=== PATIENT | male | born 1990 | race Caucasian/White ===

== ENCOUNTER → 2018-01-30 06:33 | Outpatient (CLI) | payer OTHER, SELFPAY ==
--- NOTE | 2018-01-30 | DI.MRI.S_ITS ---
PROCEDURE: MR LUMBAR SPINE WO CON INDICATIONS: LOW BACK PAIN Sacrococcygeal disorders, not elsewh TECHNIQUE: Noncontrast sagittal T1 spin echo and T2 fast echo, sagittal STIR, axial T1 and T2 fast spin echo through the lumbar spine. In cases with scoliosis, additional coronal T2 fast spin echo may be performed. COMPARISON: [facility], , MR PELVIS WO CON, 01/30/2018, 7:21. [facility], CR, XR LUMBAR SPINE WITH OLBIQUES PLUS FLEXION EXTENSION, 01/06/2018, 13:40. [facility] Outside Film, CR, XR LUMBAR SPINE 2 OR 3 VIEWS, 11/10/2017, 11:59. [facility] Outside Film, CR, XR SACRUM AND COCCYX, 07/09/2017, 12:51. FINDINGS: Image quality: Excellent. Alignment and Curvature: There is normal bony alignment. Bone Marrow: Marrow is of normal overall signal. No acute vertebral body compression fractures. Spinal Cord: Conus medullaris terminates at the L1 level. Visualized cord demonstrates normal signal and size. Paraspinous Soft Tissues: No paravertebral masses. L1-L2: Normal appearance. L2-L3: Normal appearance. L3-L4: Normal appearance. L4-L5: Normal appearance. L5-S1: Normal appearance. IMPRESSION: Normal examination, source of current symptoms is not seen. Dictated by: William Norwood M.D. on 01/30/2018 at 10:56 Approved by: William Norwood M.D. on 01/30/2018 at 10:57
--- NOTE | 2018-01-30 | DI.MRI.S_ITS ---
PROCEDURE: MR PELVIS WO CON INDICATIONS: LOW BACK PAIN Sacrococcygeal disorders, not elsewh TECHNIQUE: Noncontrast axial and coronal T1 spin echo and STIR through the lumbosacral plexus region. Optional contrast may be given, followed by axial and coronal T1 spin echo with fat saturation through the sacral plexus. COMPARISON: None. FINDINGS: Image quality: Excellent. Lumbosacral plexus: Superior to the piriformis muscles, the pre-plexal structures appear normal, including the lumbosacral trunk and S1 root. Just anterior to the piriformis muscles, the sacral plexus proper demonstrates normal morphology (lumbosacral trunk, S1 to S3 nerve roots). Inferior to the piriformis muscles, the sciatic nerves appear normal. Soft tissues: The piriformis muscles appear symmetric in size. No presacral masses. Rectum appears normal in caliber and wall thickness. No pathologic free pelvic fluid. No visualized adenopathy by size criteria. Bones: Marrow is normal in overall signal. IMPRESSION: Normal examination, no mass or inflammation is seen. The visualized sacral nerves and presacral soft tissues appear normal. Dictated by: William Norwood M.D. on 01/30/2018 at 10:02 Approved by: William Norwood M.D. on 01/30/2018 at 10:03
== END ==
PROVIDERS: Visit Provider Physical Medicine & Rehabilitation
DX: M53.3 Sacrococcygeal disorders, not elsewhere classified (principal); M54.5 Low back pain
CPT/HCPCS: 72148; 72195

== ENCOUNTER → 2018-11-05 11:43 | Outpatient (CLI) | payer OTHER, SELFPAY ==
--- NOTE | 2018-11-05 | DI.MRI.S_ITS ---
PROCEDURE: MR ANKLE LT WO CON INDICATIONS: Peroneal tendinitis, left leg TECHNIQUE: Noncontrast sagittal T1 spin echo and T2 fast spin echo with fat saturation, axial proton density fast spin echo and T2 fast spin echo with fat saturation, coronal T1 spin echo and T2 fast spin echo with fat saturation through the ankle/hindfoot. COMPARISON: None. FINDINGS: Image quality: Diagnostic. Bones and joints: No acute fracture, dislocation, or suspicious osseous lesion is evident involving the osseous structures of the left midfoot or hindfoot. A chronic appearing injury involving the anterior process of the calcaneus appears to be present. Mild degenerative changes involving the talonavicular and calcaneocuboid joints are present. Ankle mortise is well-maintained. There are no osteochondral defects involving the tibial plafond toward the talar dome. Medial structures: The deltoid and spring ligaments appear intact. The tibialis posterior, flexor digitorum longus, and flexor hallucis longus tendons are intact and otherwise unremarkable. The posterior tibial nerve through the region of the tarsal tunnel appears to be within normal limits. Lateral structures: The anterior and posterior distal tibiofibular ligaments are somewhat heterogeneous, but appear to be intact. There is thickening involving the anterior talofibular ligament, which may represent scarring from previous partial thickness injury. The calcaneofibular ligament and the posterior talofibular ligament appear intact. There is flattening of the peroneus brevis tendon on the posterior margin of the lateral malleolus. No significant narrowing is appreciated. There is thickening and increased signal evident involving the peroneus longus tendon just below the the level of the lateral malleolus. There likely is intrasubstance low-grade partial-thickness tearing. Normal fatty signal is seen within the sinus tarsi. Anterior structures: The tibialis anterior, extensor hallucis longus, and extensor digitorum longus tendons appear intact. Posterior and plantar structures: Achilles tendon is mildly thickened and edematous at its insertion. The plantar fascia is within normal limits. IMPRESSION: 1. Low-grade intrasubstance partial thickness tearing and prominent tendinopathy of the peroneus longus tendon. 2. 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 3. Probable scarring of the lateral ankle ligaments. No complete tears. 4. Chronic appearing injury of the anterior process of the calcaneus. 5. Mild degenerative changes at the talonavicular and calcaneocuboid joints. 6. Mild Achilles tendinopathy. Dictated by: Moris Red M.D. on 11/05/2018 at 14:18 Approved by: Moris Red M.D. on 11/05/2018 at 15:09
== END ==
DX: M76.72 Peroneal tendinitis, left leg (principal); S86.312A Strain of muscle(s) and tendon(s) of peroneal muscle group at lower leg level, left leg, initial encounter
CPT/HCPCS: 73721

== ENCOUNTER 2019-01-07 09:45 | Outpatient (RCR) | payer OTHER, SELFPAY ==
--- NOTE | 2018-10-21 15:20 | PT.OIE ---
Current Diagnoses Pain in right shoulder (10/21/18) Pain in left ankle and joints of left foot (10/21/18) Difficulty in walking, not elsewhere classified (10/21/18) Abnormal posture (10/21/18) Weakness (10/21/18) Provider Visit Care Team Role Provider Type William John MD Attending Provider Non-Staff Specialty: Emergency Medicine Address: [address] [place] [address], [place], [address] Email: Physical Therapy Initial Evaluation PT-OP-A Visit Information Start: 10/20/18 17:37 Freq: Status: Active Protocol: Document 10/21/18 10:33 [facility] (Rec: 10/21/18 12:10 [facility] [id number]) Out-Patient Physical Therapy Visit Information Visit Information Visit Type Initial Evaluation Visit Start Time 10:32 Visit Stop Time 11:22 Total Visit Minutes 50 Visit Number 06/18 Number of PHARMACY LABORATORY TECHNICIAN Visits 0 PT-OP-B Current Condition Start: 10/20/18 17:37 Freq: Status: Active Protocol: Document 10/21/18 10:33 [facility] (Rec: 10/21/18 12:10 [facility] [id number]) Current Condition History of Current Condition Onset Date Jun Current Complaints R shoulder & L ankle History of Current Condition Pt was pushing up a garage door and it got stuck and all the weight pushed into his R shoulder. this occured the end of Jun He thought it was just a bruise and they got a new bed and that exhasterbated it significantly. Pt reports ER said they think it was a grade 2 or 3 AC seperation. Pt had part of a week off work but has to go back. 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 He reprots it felt better the few days of rest but has to go back. Pt denies shoulder & neck pain prior. After working a lot, he had shoulder drop where he couldn 't lift his shoulder. This started on October 09. Pt had 9 days off which helped and prior to that was working and it would aggrevate it a lot. Pt reports with ankle he has 2 ankle spains that were significant. Pt had a 500lb despencer pod dropped on it. He fell backwards and it came down on his left ankle and fell back onto his tailbone and broke his tailbone. 2nd time when he was moving into house and stepped into a ditch and rolled ankle and was very swollen. 3rd injury he tripped on a baseball bat and had bruising onto the top of foot & ankle. Pt did not see doctor except for 1st injury and just put a boot on. 1st one happened in 2013, 2015 , 2016 Prior Treatments and Tests Xray of shoulder; just got a topical gel for ankle Future Testing and Treatments Planned MRI of ankle Treatment Goals Patient/Caregiver Goals get to 100%; start playing hockey on roller blades with kids again, work a full day without pain, be able to walk dogs without pain PT-OP-C Subjective Start: 10/20/18 17:37 Freq: Status: Active Protocol: Document 10/21/18 10:33 [facility] (Rec: 10/21/18 12:10 [facility] [id number]) OP-PT Pain Assessment Location L ankle Pain Location Details lat& post & forefoot dorsal surfaces Intensity 6 Scale Used Numeric (1 - 10) Description Aching Sharp Description- Other popping in L knee & ankle & L knee is going to move lat; fresh mm tear Frequency Daily Pain Duration about 1 min for tingling; up to 1 hour Radiating Location Lat foot tingling/pins and needles when sit after standing ext Pain Aggravating Factors Standing Walking Other Pain Aggravating Factors step onto it with push off Pain Alleviating Factors Medication R shoulder Pain Location Details Ant & sup Intensity 7 Scale Used Numeric (1 - 10) Description Acute Sharp Frequency Daily Pain Duration typically 5-15 min but sometimes aggrevated a day Radiating Location tingling & numbness in arm med into pinky region (unsure if others) Pain Aggravating Factors Lifting Other Pain Aggravating Factors sleeping on it, reaching, pulling, reaching across Pain Alleviating Factors Cold Heat Medication Inactivity PT-OP-D Balance Start: 10/20/18 17:37 Freq: Status: Active Protocol: Document 10/21/18 10:33 [facility] (Rec: 10/21/18 12:10 [facility] [id number]) Balance Tests Single Limb Standing Single Limb- Right >30sec Single Limb- Left 17 sec w/deviation & popping Tandem Tandem Standing R >30 sec; L>30 sec with 2 deviations PT-OP-G Mobility & Gait Start: 10/20/18 17:37 Freq: Status: Active Protocol: Document 10/21/18 10:33 [facility] (Rec: 10/21/18 12:10 [facility] [id number]) OP Gait Assessment Comments Gait Comments Pt has dec push off B with inc ER of pelvis with push off PT-OP-K Range of Motion Start: 10/20/18 17:37 Freq: Status: Active Protocol: Document 10/21/18 10:33 [facility] (Rec: 10/21/18 12:10 [facility] [id number]) Shoulder Goniometric Range of Motion Shoulder Measured in Degrees Right Active Flexion 130 Extension 51 Abduction 128 External Rotation at 45 degrees 90 Abduction Internal Rotation 85 Internal Rotation Behind Back (text) T12 Left Active Flexion 174 Extension 60 Abduction 167 External Rotation at 90 degrees 90 Abduction Internal Rotation 70 Internal Rotation Behind Back (text) T4 Ankle and Foot Goniometric Range of Motion Ankle and Foot Measured in Degrees Left Active Testing Position Sitting Dorsiflexion with Knee Flexed 10 Dorsiflexion with Knee Extended 10 Plantarflexion 39 Inversion 22 Eversion 20 Ankle and Foot ROM Limitations Comments lacking 10 dec of DF w/knee ext PT-OP-L Special Tests Start: 10/20/18 17:37 Freq: Status: Active Protocol: Document 10/21/18 10:33 [facility] (Rec: 10/21/18 12:10 [facility] [id number]) Special Tests Shoulder Special Tests Neer Impingement Test Results positive R Sulcus Test Results neg [place]ford Ilia Impingement Test Results positive R Empty Can Test Results positive R Speed's Biceps Test Results positive for pain R Webb Test Test Results positive for pain R AC Joint Compression Test Results positive for pain R Foot/Ankle Special Tests Talor Tilt Test Results R positive Anterior Draw Test Results neg L Neural Special Tests- Upper Body Median Nerve Tension Test Results positive R Upper Limb Tension Test Test Results passive abd L ~120 ; R passive about 90 Radial Nerve Tension Test Results positive R Ulnar Nerve Tension Test Results positive R PT-OP-M Strength Start: 10/20/18 17:37 Freq: Status: Active Protocol: Document 10/21/18 10:33 [facility] (Rec: 10/21/18 12:10 [facility] [id number]) Shoulder Strength Shoulder Manual Muscle Testing Right Flexion 4- Good- Extension 4- Good- Abduction (C5) 4- Good- External Rotation 4- Good- Internal Rotation 4- Good- Reason Not Measured Pain Left Flexion 5 Normal Extension 5 Normal Adduction 5 Normal External Rotation 4+ Good+ Internal Rotation 5 Normal Ankle/Foot Strength Ankle and Foot Manual Muscle Testing Right Dorsiflexion (L4) 5 Normal Plantarflexion (S1) 5 Normal Inversion 5 Normal Eversion (S1) 5 Normal Left Dorsiflexion (L4) 4 Good Plantarflexion (S1) 5 Normal Inversion 4 Good Eversion (S1) 4 Good PT-OP-Q Treatments Start: 10/20/18 17:37 Freq: Status: Active Protocol: Document 10/21/18 10:33 [facility] (Rec: 10/21/18 12:10 [facility] [id number]) Therapeutic Exercises Sitting Exercises ROM Sitting Exercise Name ABCs & circles Side left Standing Exercises calf stretch Standing Exercise Name gastroc Side left Reps/Minutes 30 sec PT-OP-T Assessment and Plan Start: 10/20/18 17:37 Freq: Status: Active Protocol: Document 10/21/18 10:33 [facility] (Rec: 10/21/18 12:10 [facility] [id number]) Physical Therapy Assessment Rehab Potential Rehabilitation Potential Excellent Evaluation Complexity Number of Personal Factors/Comorbidities 3 or More Number of Body Systems Impaired 4 or More Clinical Presentation at Evaluation Evolving Impairments Impairments Activity Tolerance Balance Functional Activities Functional Mobility Gait Pain Posture ROM Soft Tissue Mobility Strength Goals strength Short Term Goal (STG) Pt will be indep with HEP STG Duration 11/21/18 Corporate Librarian Goal (LTG) Pt will have 5/5 LE and UE strength to allow full return to sport & work without pain. LTG Duration 12/21/18 ROM Short Term Goal (STG) Full ROM to ankle to allow improved gait. STG Duration 11/21/18 Corporate Librarian Goal (LTG) Pt will have full shoulder ROM to allow for typical ADLs without pain. LTG Duration 12/21/18 function Short Term Goal (STG) Pt will be able to tolerate half day of work with no more than 4/10 pain in ankle and shoulder. STG Duration 11/21/18 Custodial Goal (LTG) Pt will be able to tolerate full day work without pain and will be able to play with kids without inc pain. LTG Duration 12/21/18 Assessment Summary Assessment Pt presents with s/s of subacromial impingment & rotator cuff tendinitis with possiblity of AC separation at initial injury per MD. Pt presents with chronic ankle sprains with dec ankle mobility, impaired gait, dec strrength and dec functional ability. Pt would benefit from skilled PT to address both issues and work on improvement of his mobility and symptoms. Physical Therapy Plan Frequency and Duration Duration of Treatment 2 months Plan of Care Start Date 10/21/18 Plan of Care End Date 12/21/18 Therapeutic Interventions Therapeutic Interventions Aquatic Therapy Balance Training Gait Training Home Exercise Program Joint Mobilizations Manual Therapy Neuromuscular Re-education Patient/Caregiver Education Self-Care/Home Management Soft Tissue Mobilization Taping Therapeutic Activities Therapeutic Exercises Modalities Cold Pack/Ice Massage Electric Stimulation Hot Packs Infrared Therapy Iontophoresis Ultrasound Next Visit Focus/Plan Next Note Type Treatment Note Next Visit Plan scapular strengthening exercises, UT & LS stretch, pec stretch, ankle 4 way strength, STM to ankle structures & pecs
--- NOTE | 2018-10-21 15:20 | PT.OPPOC ---
Current Diagnoses Pain in right shoulder (10/21/18) Pain in left ankle and joints of left foot (10/21/18) Difficulty in walking, not elsewhere classified (10/21/18) Abnormal posture (10/21/18) Weakness (10/21/18) Provider Visit Care Team Role Provider Type William John MD Attending Provider Non-Staff Specialty: Emergency Medicine Address: [address] [place] [address], [id number] Email: Plan Of Care PT-OP-T Assessment and Plan Start: 10/20/18 17:37 Freq: Status: Active Protocol: Document 10/21/18 10:33 [facility] (Rec: 10/21/18 12:10 [facility] [id number]) Physical Therapy Assessment Rehab Potential Rehabilitation Potential Excellent Evaluation Complexity Number of Personal Factors/Comorbidities 3 or More Number of Body Systems Impaired 4 or More Clinical Presentation at Evaluation Evolving Impairments Impairments Activity Tolerance Balance Functional Activities Functional Mobility Gait Pain Posture ROM Soft Tissue Mobility Strength Goals strength Short Term Goal (STG) Pt will be indep with HEP STG Duration 11/21/18 Dividing Machine Operator Goal (LTG) Pt will have 5/5 LE and UE strength to allow full return to sport & work without pain. LTG Duration 12/21/18 ROM Short Term Goal (STG) Full ROM to ankle to allow improved gait. STG Duration 11/21/18 Dividing Machine Operator Goal (LTG) Pt will have full shoulder ROM to allow for typical ADLs without pain. LTG Duration 12/21/18 function Short Term Goal (STG) Pt will be able to tolerate half day of work with no more than 4/10 pain in ankle and shoulder. STG Duration 11/21/18 Dividing Machine Operator Goal (LTG) Pt will be able to tolerate full day work without pain and will be able to play with kids without inc pain. LTG Duration 12/21/18 Assessment Summary Assessment Pt presents with s/s of subacromial impingment & rotator cuff tendinitis with possiblity of AC separation at initial injury per MD. Pt presents with chronic ankle sprains with dec ankle mobility, impaired gait, dec strrength and dec functional ability. Pt would benefit from skilled PT to address both issues and work on improvement of his mobility and symptoms. Physical Therapy Plan Frequency and Duration Duration of Treatment 2 months Plan of Care Start Date 10/21/18 Plan of Care End Date 12/21/18 Therapeutic Interventions Therapeutic Interventions Aquatic Therapy Balance Training Gait Training Home Exercise Program Joint Mobilizations Manual Therapy Neuromuscular Re-education Patient/Caregiver Education Self-Care/Home Management Soft Tissue Mobilization Taping Therapeutic Activities Therapeutic Exercises Modalities Cold Pack/Ice Massage Electric Stimulation Hot Packs Infrared Therapy Iontophoresis Ultrasound Next Visit Focus/Plan Next Note Type Treatment Note Next Visit Plan scapular strengthening exercises, UT & LS stretch, pec stretch, ankle 4 way strength, STM to ankle structures & pecs Plan of Care Dates Plan of Care Start Date 10/21/18 Plan of Care End Date 12/21/18 Please Sign and Return: I have reviewed this Plan of Care and certify that the skilled therapy services above are required to meet the patient?s needs. Physician Signature Date Printed Name and Credentials Clinical Instructor Signature Printed Name and Credentials
--- NOTE | 2018-10-29 11:16 | PT.OTN ---
Current Diagnoses Pain in right shoulder (10/29/18) Pain in left ankle and joints of left foot (10/29/18) Difficulty in walking, not elsewhere classified (10/29/18) Abnormal posture (10/29/18) Weakness (10/29/18) Physical Therapy Treatment Note PT-OP-A Visit Information Start: 10/20/18 17:37 Freq: Status: Active Protocol: Document 10/29/18 10:35 DCW (Rec: 10/29/18 11:15 [facility] [id number]) Out-Patient Physical Therapy Visit Information Visit Information Visit Type Treatment Note Visit Start Time 10:35 Visit Stop Time 11:15 Total Visit Minutes 40 Visit Number 07/19 Number of STUD SETTER Visits 0 Evaluation Information Evaluation Date 10/22/15 PT-OP-B Current Condition Start: 10/20/18 17:37 Freq: Status: Active Protocol: Document 10/21/18 10:33 [facility] (Rec: 10/21/18 12:10 [facility] [id number]) Current Condition History of Current Condition Onset Date Jun Current Complaints R shoulder & L ankle History of Current Condition Pt was pushing up a garage door and it got stuck and all the weight pushed into his R shoulder. this occured the end of Jun He thought it was just a bruise and they got a new bed and that exhasterbated it significantly. Pt reports ER said they think it was a grade 2 or 3 AC seperation. Pt had part of a week off work but has to go back. 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 He reprots it felt better the few days of rest but has to go back. Pt denies shoulder & neck pain prior. After working a lot, he had shoulder drop where he couldn 't lift his shoulder. This started on October 09. Pt had 9 days off which helped and prior to that was working and it would aggrevate it a lot. Pt reports with ankle he has 2 ankle spains that were significant. Pt had a 500lb despencer pod dropped on it. He fell backwards and it came down on his left ankle and fell back onto his tailbone and broke his tailbone. 2nd time when he was moving into house and stepped into a ditch and rolled ankle and was very swollen. 3rd injury he tripped on a baseball bat and had bruising onto the top of foot & ankle. Pt did not see doctor except for 1st injury and just put a boot on. 1st one happened in 2013, 2015 , 2016 Prior Treatments and Tests Xray of shoulder; just got a topical gel for ankle Future Testing and Treatments Planned MRI of ankle Treatment Goals Patient/Caregiver Goals get to 100%; start playing hockey on roller blades with kids again, work a full day without pain, be able to walk dogs without pain PT-OP-C Subjective Start: 10/20/18 17:37 Freq: Status: Active Protocol: Document 10/29/18 10:35 [facility]W (Rec: 10/29/18 11:16 [facility] [id number]) OP-PT Subjective Patient Comments Patient Comments I think my ankle is going to be giving us more trouble than my shoulder. PT-OP-D Balance Start: 10/20/18 17:37 Freq: Status: Active Protocol: Document 10/21/18 10:33 [facility] (Rec: 10/21/18 12:10 [facility] [id number]) Balance Tests Single Limb Standing Single Limb- Right >30sec Single Limb- Left 17 sec w/deviation & popping Tandem Tandem Standing R >30 sec; L>30 sec with 2 deviations PT-OP-G Mobility & Gait Start: 10/20/18 17:37 Freq: Status: Active Protocol: Document 10/21/18 10:33 [facility] (Rec: 10/21/18 12:10 [facility] [id number]) OP Gait Assessment Comments Gait Comments Pt has dec push off B with inc ER of pelvis with push off PT-OP-K Range of Motion Start: 10/20/18 17:37 Freq: Status: Active Protocol: Document 10/21/18 10:33 [facility] (Rec: 10/21/18 12:10 [facility] [id number]) Shoulder Goniometric Range of Motion Shoulder Measured in Degrees Right Active Flexion 130 Extension 51 Abduction 128 External Rotation at 45 degrees 90 Abduction Internal Rotation 85 Internal Rotation Behind Back (text) T12 Left Active Flexion 174 Extension 60 Abduction 167 External Rotation at 90 degrees 90 Abduction Internal Rotation 70 Internal Rotation Behind Back (text) T4 Ankle and Foot Goniometric Range of Motion Ankle and Foot Measured in Degrees Left Active Testing Position Sitting Dorsiflexion with Knee Flexed 10 Dorsiflexion with Knee Extended 10 Plantarflexion 39 Inversion 22 Eversion 20 Ankle and Foot ROM Limitations Comments lacking 10 dec of DF w/knee ext PT-OP-L Special Tests Start: 10/20/18 17:37 Freq: Status: Active Protocol: Document 10/21/18 10:33 [facility] (Rec: 10/21/18 12:10 [facility] [id number]) Special Tests Shoulder Special Tests Neer Impingement Test Results positive R Sulcus Test Results neg [place] Ilia Impingement Test Results positive R Empty Can Test Results positive R Speed's Biceps Test Results positive for pain R Gratiot Test Test Results positive for pain R AC Joint Compression Test Results positive for pain R Foot/Ankle Special Tests Talor Tilt Test Results R positive Anterior Draw Test Results neg L Neural Special Tests- Upper Body Median Nerve Tension Test Results positive R Upper Limb Tension Test Test Results passive abd L ~120 ; R passive about 90 Radial Nerve Tension Test Results positive R Ulnar Nerve Tension Test Results positive R PT-OP-M Strength Start: 10/20/18 17:37 Freq: Status: Active Protocol: Document 10/21/18 10:33 [facility] (Rec: 10/21/18 12:10 [facility] [id number]) Shoulder Strength Shoulder Manual Muscle Testing Right Flexion 4- Good- Extension 4- Good- Abduction (C5) 4- Good- External Rotation 4- Good- Internal Rotation 4- Good- Reason Not Measured Pain Left Flexion 5 Normal Extension 5 Normal Adduction 5 Normal External Rotation 4+ Good+ Internal Rotation 5 Normal Ankle/Foot Strength Ankle and Foot Manual Muscle Testing Right Dorsiflexion (L4) 5 Normal Plantarflexion (S1) 5 Normal Inversion 5 Normal Eversion (S1) 5 Normal Left Dorsiflexion (L4) 4 Good Plantarflexion (S1) 5 Normal Inversion 4 Good Eversion (S1) 4 Good PT-OP-Q Treatments Start: 10/20/18 17:37 Freq: Status: Active Protocol: Document 10/29/18 10:35 [facility] (Rec: 10/29/18 11:15 [facility] [id number]) Therapeutic Exercises Sitting Exercises 4-way ankle flexion Sitting Exercise Name 4-way ankle flexion Upper Trap Stretch Sitting Exercise Name UT Stretch Side bilateral Standing Exercises Pec Stretch Standing Exercise Name Corner Pec Stretch Side bilateral External Rotation Standing Exercise Name Shoulder ER Side right Resistance Lv 2 Equipment Used T-band Internal Rotation Standing Exercise Name Shoulder IR Side right Resistance Lv 2 Equipment Used T-band Shoulder Adduction Standing Exercise Name Shoulder Adduction Side bilateral Resistance Lv 3 Equipment Used T-band Shoulder Extension Standing Exercise Name Shoulder Extension Side bilateral Resistance Lv 3 Equipment Used T-band PT-OP-T Assessment and Plan Start: 10/20/18 17:37 Freq: Status: Active Protocol: Document 10/29/18 10:35 [facility] (Rec: 10/29/18 11:15 [facility] [id number]) Physical Therapy Assessment Impairments Impairments Activity Tolerance Balance Functional Activities Functional Mobility Gait Pain Posture ROM Soft Tissue Mobility Strength Goals strength Short Term Goal (STG) Pt will be indep with HEP STG Duration 11/21/18 Life Support Technician Goal (LTG) Pt will have 5/5 LE and UE strength to allow full return to sport & work without pain. LTG Duration 12/21/18 ROM Short Term Goal (STG) Full ROM to ankle to allow improved gait. STG Duration 11/21/18 Life Support Technician Goal (LTG) Pt will have full shoulder ROM to allow for typical ADLs without pain. LTG Duration 12/21/18 function Short Term Goal (STG) Pt will be able to tolerate half day of work with no more than 4/10 pain in ankle and shoulder. STG Duration 11/21/18 [facility] Goal (LTG) Pt will be able to tolerate full day work without pain and will be able to play with kids without inc pain. LTG Duration 12/21/18 Assessment Summary Assessment Pt tolerated all new exercises well, agreeable to perform new stretches during HEP. Pt's left peroneal tendon does appear to sublux and strum across his lat malleolus, however this will be better observed in his upcoming MRI. Physical Therapy Plan Frequency and Duration Duration of Treatment 2 months Plan of Care Start Date 10/21/18 Plan of Care End Date 12/21/18 Therapeutic Interventions Therapeutic Interventions Aquatic Therapy Balance Training Gait Training Home Exercise Program Joint Mobilizations Manual Therapy Neuromuscular Re-education Patient/Caregiver Education Self-Care/Home Management Soft Tissue Mobilization Taping Therapeutic Activities Therapeutic Exercises Modalities Cold Pack/Ice Massage Electric Stimulation Hot Packs Infrared Therapy Iontophoresis Ultrasound Next Visit Focus/Plan Next Note Type Treatment Note Next Visit Plan scapular strengthening exercises, UT & LS stretch, pec stretch, ankle 4 way strength, STM to ankle structures & pecs
--- NOTE | 2018-11-05 09:57 | PT.OTN ---
Current Diagnoses Pain in right shoulder (11/05/18) Pain in left ankle and joints of left foot (11/05/18) Difficulty in walking, not elsewhere classified (11/05/18) Abnormal posture (11/05/18) Weakness (11/05/18) Physical Therapy Treatment Note PT-OP-A Visit Information Start: 10/20/18 17:37 Freq: Status: Active Protocol: Document 11/05/18 09:57 DL (Rec: 11/05/18 17:14 DL [id number]) Out-Patient Physical Therapy Visit Information Visit Information Visit Type Treatment Note Visit Start Time 09:57 Visit Stop Time 10:36 Total Visit Minutes 39 Visit Number 08/16 Number of VEGETABLE FARMWORKER Visits 0 Evaluation Information Evaluation Date 10/22/15 PT-OP-B Current Condition Start: 10/20/18 17:37 Freq: Status: Active Protocol: Document 10/21/18 10:33 [facility] (Rec: 10/21/18 12:10 [facility] [id number]) Current Condition History of Current Condition Onset Date Jun Current Complaints R shoulder & L ankle History of Current Condition Pt was pushing up a garage door and it got stuck and all the weight pushed into his R shoulder. this occurred the end of Jun He thought it was just a bruise and they got a new bed and that exacerbated it significantly. Pt reports ER said they think it was a grade 2 or 3 AC separation. Pt had part of a week off work but has to go back. 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 He reports it felt better the few days of rest but has to go back. Pt denies shoulder & neck pain prior. After working a lot, he had shoulder drop where he couldn 't lift his shoulder. This started on October 09. Pt had 9 days off which helped and prior to that was working and it would aggravate it a lot. Pt reports with ankle he has 2 ankle sprains that were significant. Pt had a 500lb dispenser pod dropped on it. He fell backwards and it came down on his left ankle and fell back onto his tailbone and broke his tailbone. 2nd time when he was moving into house and stepped into a ditch and rolled ankle and was very swollen. 3rd injury he tripped on a baseball bat and had bruising onto the top of foot & ankle. Pt did not see doctor except for 1st injury and just put a boot on. 1st one happened in 2013, 2015 , 2016 Prior Treatments and Tests Xray of shoulder; just got a topical gel for ankle Future Testing and Treatments Planned MRI of ankle Treatment Goals Patient/Caregiver Goals get to 100%; start playing hockey on roller blades with kids again, work a full day without pain, be able to walk dogs without pain PT-OP-C Subjective Start: 10/20/18 17:37 Freq: Status: Active Protocol: Document 11/05/18 09:57 [facility] (Rec: 11/05/18 17:14 [facility] [id number]) OP-PT Subjective Patient Comments Patient Comments Shoulder is better. He only notices pain if he tries to throw or reach over head. His ankle pops all the time. He is getting an MRI today on his ankle. OP-PT Pain Assessment Location L ankle Intensity 4 Scale Used Numeric (1 - 10) Description Aching Sharp Description- Other popping left lateral ankle and up to knee PT-OP-D Balance Start: 10/20/18 17:37 Freq: Status: Active Protocol: Document 10/21/18 10:33 [facility] (Rec: 10/21/18 12:10 [facility] [id number]) Balance Tests Single Limb Standing Single Limb- Right >30sec Single Limb- Left 17 sec w/deviation & popping Tandem Tandem Standing R >30 sec; L>30 sec with 2 deviations PT-OP-G Mobility & Gait Start: 10/20/18 17:37 Freq: Status: Active Protocol: Document 10/21/18 10:33 [facility] (Rec: 10/21/18 12:10 [facility] [id number]) OP Gait Assessment Comments Gait Comments Pt has dec push off B with inc ER of pelvis with push off PT-OP-K Range of Motion Start: 10/20/18 17:37 Freq: Status: Active Protocol: Document 10/21/18 10:33 [facility] (Rec: 10/21/18 12:10 [facility] [id number]) Shoulder Goniometric Range of Motion Shoulder Measured in Degrees Right Active Flexion 130 Extension 51 Abduction 128 External Rotation at 45 degrees 90 Abduction Internal Rotation 85 Internal Rotation Behind Back (text) T12 Left Active Flexion 174 Extension 60 Abduction 167 External Rotation at 90 degrees 90 Abduction Internal Rotation 70 Internal Rotation Behind Back (text) T4 Ankle and Foot Goniometric Range of Motion Ankle and Foot Measured in Degrees Left Active Testing Position Sitting Dorsiflexion with Knee Flexed 10 Dorsiflexion with Knee Extended 10 Plantarflexion 39 Inversion 22 Eversion 20 Ankle and Foot ROM Limitations Comments lacking 10 dec of DF w/knee ext PT-OP-L Special Tests Start: 10/20/18 17:37 Freq: Status: Active Protocol: Document 10/21/18 10:33 [facility] (Rec: 10/21/18 12:10 [facility] [id number]) Special Tests Shoulder Special Tests Neer Impingement Test Results positive R Sulcus Test Results neg [place] Ilia Impingement Test Results positive R Empty Can Test Results positive R Speed's Biceps Test Results positive for pain R [place] Test Test Results positive for pain R AC Joint Compression Test Results positive for pain R Foot/Ankle Special Tests Talor Tilt Test Results R positive Anterior Draw Test Results neg L Neural Special Tests- Upper Body Median Nerve Tension Test Results positive R Upper Limb Tension Test Test Results passive abd L ~120 ; R passive about 90 Radial Nerve Tension Test Results positive R Ulnar Nerve Tension Test Results positive R PT-OP-M Strength Start: 10/20/18 17:37 Freq: Status: Active Protocol: Document 10/21/18 10:33 [facility] (Rec: 10/21/18 12:10 [facility] [id number]) Shoulder Strength Shoulder Manual Muscle Testing Right Flexion 4- Good- Extension 4- Good- Abduction (C5) 4- Good- External Rotation 4- Good- Internal Rotation 4- Good- Reason Not Measured Pain Left Flexion 5 Normal Extension 5 Normal Adduction 5 Normal External Rotation 4+ Good+ Internal Rotation 5 Normal Ankle/Foot Strength Ankle and Foot Manual Muscle Testing Right Dorsiflexion (L4) 5 Normal Plantarflexion (S1) 5 Normal Inversion 5 Normal Eversion (S1) 5 Normal Left Dorsiflexion (L4) 4 Good Plantarflexion (S1) 5 Normal Inversion 4 Good Eversion (S1) 4 Good PT-OP-Q Treatments Start: 10/20/18 17:37 Freq: Status: Active Protocol: Document 11/05/18 09:57 [facility] (Rec: 11/05/18 17:14 DL [id number]) Therapeutic Exercises Sitting Exercises 4-way ankle flexion Sitting Exercise Name 4-way ankle Side left Resistance L2 exercise band Reps/Minutes 10 reps each Comments DF/PF/IV/EV Standing Exercises Heel Raises Standing Exercise Name bilateral up then eccentric down left Side left Reps/Minutes 10 reps External Rotation Standing Exercise Name Shoulder ER Side bilateral Resistance Lv 2 Equipment Used T-band Reps/Minutes 10 reps Comments with scapular retraction Internal Rotation Standing Exercise Name Shoulder IR Side right Resistance Lv 2 Equipment Used T-band Reps/Minutes 10 reps Comments verbal cues for technique Shoulder Adduction Standing Exercise Name Shoulder Adduction Side bilateral Resistance Lv 3 Equipment Used T-band Reps/Minutes 10 reps Shoulder Extension Standing Exercise Name Shoulder Extension Side bilateral Resistance Lv 3 Equipment Used T-band Reps/Minutes 10 reps Comments postural cues calf stretch Standing Exercise Name gastroc Side left Equipment Used off edge of stair Reps/Minutes 30 sec, 3 reps Comments also performed standing Self-Care/Home Management Treatment Education Patient Education Home Exercise Program Other Education L2 exercise band provided for home, pt to stop alphabet exercise to minimize popping in ankle, change to calf stretch on stair to increase ROM PT-OP-T Assessment and Plan Start: 10/20/18 17:37 Freq: Status: Active Protocol: Document 11/05/18 09:57 [facility] (Rec: 11/05/18 17:14 [facility] [id number]) Physical Therapy Assessment Goals strength Impairment Strength Short Term Goal (STG) Pt will be indep with HEP STG Duration 11/21/18 Nursing Home Goal (LTG) Pt will have 5/5 LE and UE strength to allow full return to sport & work without pain. LTG Duration 12/21/18 ROM Impairment ROM Short Term Goal (STG) Full ROM to ankle to allow improved gait. STG Duration 11/21/18 Nursing Home Goal (LTG) Pt will have full shoulder ROM to allow for typical ADLs without pain. LTG Duration 12/21/18 function Impairment Function Short Term Goal (STG) Pt will be able to tolerate half day of work with no more than 4/10 pain in ankle and shoulder. STG Duration 11/21/18 Nursing Home Goal (LTG) Pt will be able to tolerate full day work without pain and will be able to play with kids without inc pain. LTG Duration 12/21/18 Progress Towards Goals Progress Towards Goals Progressing Toward Goals Assessment Summary Assessment He tolerated treatment well. He reports good progress with his shoulder. He is very concerned about the on-going popping in his ankle. Noted continued foot ER due to decreased dorsiflexion ROM. Changed gastroc stretch to further increase his ROM. Physical Therapy Plan Frequency and Duration Frequency of Treatment 2x/Week Duration of Treatment 2 months Plan of Care Start Date 10/21/18 Plan of Care End Date 12/21/18 Therapeutic Interventions Therapeutic Interventions Aquatic Therapy Balance Training Gait Training Home Exercise Program Joint Mobilizations Manual Therapy Neuromuscular Re-education Patient/Caregiver Education Self-Care/Home Management Soft Tissue Mobilization Taping Therapeutic Activities Therapeutic Exercises Modalities Cold Pack/Ice Massage Electric Stimulation Hot Packs Infrared Therapy Iontophoresis Ultrasound Next Visit Focus/Plan Next Note Type Treatment Note Next Visit Plan add ex to simulate throwing and over-head activities to decrease pain, ankle stabilization ex, follow-up on ankle MRI results
--- NOTE | 2018-11-12 16:29 | PT.OTN ---
Current Diagnoses Pain in right shoulder (11/12/18) Pain in left ankle and joints of left foot (11/12/18) Difficulty in walking, not elsewhere classified (11/12/18) Abnormal posture (11/12/18) Weakness (11/12/18) Physical Therapy Treatment Note PT-OP-A Visit Information Start: 10/20/18 17:37 Freq: Status: Active Protocol: Document 11/12/18 13:00 [facility]GD (Rec: 11/12/18 16:28 GGD [id number]) Out-Patient Physical Therapy Visit Information Visit Information Visit Type Treatment Note Visit Start Time 13:05 Visit Stop Time 13:45 Total Visit Minutes 40 Visit Number 09/16 Number of PLATEMAKER Visits 1 Evaluation Information Evaluation Date 10/22/15 PT-OP-B Current Condition Start: 10/20/18 17:37 Freq: Status: Active Protocol: Document 10/21/18 10:33 [facility] (Rec: 10/21/18 12:10 [facility] [id number]) Current Condition History of Current Condition Onset Date Jun Current Complaints R shoulder & L ankle History of Current Condition Pt was pushing up a garage door and it got stuck and all the weight pushed into his R shoulder. this occured the end of Jun He thought it was just a bruise and they got a new bed and that exhasterbated it significantly. Pt reports ER said they think it was a grade 2 or 3 AC seperation. Pt had part of a week off work but has to go back. 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 He reprots it felt better the few days of rest but has to go back. Pt denies shoulder & neck pain prior. After working a lot, he had shoulder drop where he couldn 't lift his shoulder. This started on October 09. Pt had 9 days off which helped and prior to that was working and it would aggrevate it a lot. Pt reports with ankle he has 2 ankle spains that were significant. Pt had a 500lb despencer pod dropped on it. He fell backwards and it came down on his left ankle and fell back onto his tailbone and broke his tailbone. 2nd time when he was moving into house and stepped into a ditch and rolled ankle and was very swollen. 3rd injury he tripped on a baseball bat and had bruising onto the top of foot & ankle. Pt did not see doctor except for 1st injury and just put a boot on. 1st one happened in 2013, 2015 , 2016 Prior Treatments and Tests Xray of shoulder; just got a topical gel for ankle Future Testing and Treatments Planned MRI of ankle Treatment Goals Patient/Caregiver Goals get to 100%; start playing hockey on roller blades with kids again, work a full day without pain, be able to walk dogs without pain PT-OP-C Subjective Start: 10/20/18 17:37 Freq: Status: Active Protocol: Document 11/12/18 13:00 [facility]GD (Rec: 11/12/18 16:28 GGD [id number]) OP-PT Subjective Patient Comments Patient Comments Pt states shoulder is improving. He still having his ankle pop at times. PT-OP-D Balance Start: 10/20/18 17:37 Freq: Status: Active Protocol: Document 10/21/18 10:33 [facility] (Rec: 10/21/18 12:10 [facility] [id number]) Balance Tests Single Limb Standing Single Limb- Right >30sec Single Limb- Left 17 sec w/deviation & popping Tandem Tandem Standing R >30 sec; L>30 sec with 2 deviations PT-OP-G Mobility & Gait Start: 10/20/18 17:37 Freq: Status: Active Protocol: Document 10/21/18 10:33 [facility] (Rec: 10/21/18 12:10 [facility] [id number]) OP Gait Assessment Comments Gait Comments Pt has dec push off B with inc ER of pelvis with push off PT-OP-K Range of Motion Start: 10/20/18 17:37 Freq: Status: Active Protocol: Document 10/21/18 10:33 [facility] (Rec: 10/21/18 12:10 [facility] [id number]) Shoulder Goniometric Range of Motion Shoulder Right Active Flexion 130 Extension 51 Abduction 128 External Rotation at 45 degrees 90 Abduction Internal Rotation 85 Internal Rotation Behind Back (text) T12 Left Active Flexion 174 Extension 60 Abduction 167 External Rotation at 90 degrees 90 Abduction Internal Rotation 70 Internal Rotation Behind Back (text) T4 Ankle and Foot Goniometric Range of Motion Ankle and Foot Left Active Testing Position Sitting Dorsiflexion with Knee Flexed 10 Dorsiflexion with Knee Extended 10 Plantarflexion 39 Inversion 22 Eversion 20 Ankle and Foot ROM Limitations Comments lacking 10 dec of DF w/knee ext PT-OP-L Special Tests Start: 10/20/18 17:37 Freq: Status: Active Protocol: Document 10/21/18 10:33 [facility] (Rec: 10/21/18 12:10 [facility] [id number]) Special Tests Shoulder Special Tests Neer Impingement Test Results positive R Sulcus Test Results neg [place] Ilia Impingement Test Results positive R Empty Can Test Results positive R Speed's Biceps Test Results positive for pain R [place] Test Test Results positive for pain R AC Joint Compression Test Results positive for pain R Foot/Ankle Special Tests Talor Tilt Test Results R positive Anterior Draw Test Results neg L Neural Special Tests- Upper Body Median Nerve Tension Test Results positive R Upper Limb Tension Test Test Results passive abd L ~120 ; R passive about 90 Radial Nerve Tension Test Results positive R Ulnar Nerve Tension Test Results positive R PT-OP-M Strength Start: 10/20/18 17:37 Freq: Status: Active Protocol: Document 10/21/18 10:33 [facility] (Rec: 10/21/18 12:10 [facility] [id number]) Shoulder Strength Shoulder Manual Muscle Testing Right Flexion 4- Good- Extension 4- Good- Abduction (C5) 4- Good- External Rotation 4- Good- Internal Rotation 4- Good- Reason Not Measured Pain Left Flexion 5 Normal Extension 5 Normal Adduction 5 Normal External Rotation 4+ Good+ Internal Rotation 5 Normal Ankle/Foot Strength Ankle and Foot Manual Muscle Testing Right Dorsiflexion (L4) 5 Normal Plantarflexion (S1) 5 Normal Inversion 5 Normal Eversion (S1) 5 Normal Left Dorsiflexion (L4) 4 Good Plantarflexion (S1) 5 Normal Inversion 4 Good Eversion (S1) 4 Good PT-OP-Q Treatments Start: 10/20/18 17:37 Freq: Status: Active Protocol: Document 11/12/18 13:00 [facility] (Rec: 11/12/18 16:28 [facility] [id number]) Therapeutic Exercises Prone Exercises shoulder Y's and T's Prone Exercise Name Shoulder flexion and hor abd Side bilateral Resistance 1# Standing Exercises Heel Raises Standing Exercise Name bilateral up then eccentric down left Side left Reps/Minutes 10 reps External Rotation Standing Exercise Name Shoulder ER Side bilateral Resistance Lv 2 Equipment Used T-band Reps/Minutes 10 reps Comments with scapular retraction Internal Rotation Standing Exercise Name Shoulder IR Side right Resistance Lv 2 Equipment Used T-band Reps/Minutes 10 reps Comments verbal cues for technique Shoulder Adduction Standing Exercise Name Shoulder Adduction Side bilateral Resistance Lv 3 Equipment Used T-band Reps/Minutes 10 reps Shoulder Extension Standing Exercise Name Shoulder Extension Side bilateral Resistance Lv 3 Equipment Used T-band Reps/Minutes 10 reps Comments postural cues calf stretch Standing Exercise Name gastroc Side left Equipment Used off edge of stair Reps/Minutes 30 sec, 3 reps Comments also performed standing Manual Therapy Treatment Soft Tissue Mobilization 1 Body Location Peroneal Mobilization Type Myofascial Release Rolling Sustained Pressure Intensity/Depth Moderate Body Position Prone Neuro Re-Education Treatment Balance Activities SLS Details SLS Surface firm and blue foam PT-OP-T Assessment and Plan Start: 10/20/18 17:37 Freq: Status: Active Protocol: Document 11/12/18 13:00 [facility] (Rec: 11/12/18 16:28 [facility] [id number]) Physical Therapy Assessment Assessment Summary Assessment Pt fatigued with progression of shoulder strengthening. He tolerated SLS balance. He had tenderness with STM. Physical Therapy Plan Frequency and Duration Frequency of Treatment 2x/Week Duration of Treatment 2 months Plan of Care Start Date 10/21/18 Plan of Care End Date 12/21/18 Next Visit Focus/Plan Next Note Type Treatment Note Next Visit Plan add ex to simulate throwing ankle stabalization ex
--- NOTE | 2018-11-18 12:04 | PT.OTN ---
Current Diagnoses Pain in right shoulder (11/18/18) Pain in left ankle and joints of left foot (11/18/18) Difficulty in walking, not elsewhere classified (11/18/18) Abnormal posture (11/18/18) Weakness (11/18/18) Physical Therapy Treatment Note PT-OP-A Visit Information Start: 10/20/18 17:37 Freq: Status: Active Protocol: Document 11/18/18 10:55 [facility] (Rec: 11/18/18 12:04 [facility] [id number]) Out-Patient Physical Therapy Visit Information Visit Information Visit Type Treatment Note Visit Start Time 11:15 Visit Stop Time 11:55 Total Visit Minutes 40 Visit Number 10/16 Number of AIRCRAFT LAYOUT WORKER Visits 0 PT-OP-B Current Condition Start: 10/20/18 17:37 Freq: Status: Active Protocol: Document 10/21/18 10:33 [facility] (Rec: 10/21/18 12:10 [facility] [id number]) Current Condition History of Current Condition Onset Date Jun Current Complaints R shoulder & L ankle History of Current Condition Pt was pushing up a garage door and it got stuck and all the weight pushed into his R shoulder. this occured the end of Jun He thought it was just a bruise and they got a new bed and that exhasterbated it significantly. Pt reports ER said they think it was a grade 2 or 3 AC seperation. Pt had part of a week off work but has to go back. 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 He reprots it felt better the few days of rest but has to go back. Pt denies shoulder & neck pain prior. After working a lot, he had shoulder drop where he couldn 't lift his shoulder. This started on October 09. Pt had 9 days off which helped and prior to that was working and it would aggrevate it a lot. Pt reports with ankle he has 2 ankle spains that were significant. Pt had a 500lb despencer pod dropped on it. He fell backwards and it came down on his left ankle and fell back onto his tailbone and broke his tailbone. 2nd time when he was moving into house and stepped into a ditch and rolled ankle and was very swollen. 3rd injury he tripped on a baseball bat and had bruising onto the top of foot & ankle. Pt did not see doctor except for 1st injury and just put a boot on. 1st one happened in 2013, 2015 , 2016 Prior Treatments and Tests Xray of shoulder; just got a topical gel for ankle Future Testing and Treatments Planned MRI of ankle Treatment Goals Patient/Caregiver Goals get to 100%; start playing hockey on roller blades with kids again, work a full day without pain, be able to walk dogs without pain PT-OP-C Subjective Start: 10/20/18 17:37 Freq: Status: Active Protocol: Document 11/18/18 10:55 [facility] (Rec: 11/18/18 12:04 [facility] [id number]) OP-PT Subjective Patient Comments Patient Comments Pt reports his shoulder is doing well and he is working hard at his HEP. Has been able to hop some. He is hoping to get back to lat movement Patient Reported Progress Improving PT-OP-D Balance Start: 10/20/18 17:37 Freq: Status: Active Protocol: Document 10/21/18 10:33 [facility] (Rec: 10/21/18 12:10 [facility] [id number]) Balance Tests Single Limb Standing Single Limb- Right >30sec Single Limb- Left 17 sec w/deviation & popping Tandem Tandem Standing R >30 sec; L>30 sec with 2 deviations PT-OP-G Mobility & Gait Start: 10/20/18 17:37 Freq: Status: Active Protocol: Document 10/21/18 10:33 [facility] (Rec: 10/21/18 12:10 [facility] [id number]) OP Gait Assessment Comments Gait Comments Pt has dec push off B with inc ER of pelvis with push off PT-OP-K Range of Motion Start: 10/20/18 17:37 Freq: Status: Active Protocol: Document 10/21/18 10:33 [facility] (Rec: 10/21/18 12:10 [facility] [id number]) Shoulder Goniometric Range of Motion Shoulder Right Active Flexion 130 Extension 51 Abduction 128 External Rotation at 45 degrees 90 Abduction Internal Rotation 85 Internal Rotation Behind Back (text) T12 Left Active Flexion 174 Extension 60 Abduction 167 External Rotation at 90 degrees 90 Abduction Internal Rotation 70 Internal Rotation Behind Back (text) T4 Ankle and Foot Goniometric Range of Motion Ankle and Foot Left Active Testing Position Sitting Dorsiflexion with Knee Flexed 10 Dorsiflexion with Knee Extended 10 Plantarflexion 39 Inversion 22 Eversion 20 Ankle and Foot ROM Limitations Comments lacking 10 dec of DF w/knee ext PT-OP-L Special Tests Start: 10/20/18 17:37 Freq: Status: Active Protocol: Document 10/21/18 10:33 [facility] (Rec: 10/21/18 12:10 [facility] [id number]) Special Tests Shoulder Special Tests Neer Impingement Test Results positive R Sulcus Test Results neg [place] Impingement Test Results positive R Empty Can Test Results positive R Speed's Biceps Test Results positive for pain R [place] Test Test Results positive for pain R AC Joint Compression Test Results positive for pain R Foot/Ankle Special Tests Talor Tilt Test Results R positive Anterior Draw Test Results neg L Neural Special Tests- Upper Body Median Nerve Tension Test Results positive R Upper Limb Tension Test Test Results passive abd L ~120 ; R passive about 90 Radial Nerve Tension Test Results positive R Ulnar Nerve Tension Test Results positive R PT-OP-M Strength Start: 10/20/18 17:37 Freq: Status: Active Protocol: Document 10/21/18 10:33 [facility] (Rec: 10/21/18 12:10 [facility] [id number]) Shoulder Strength Shoulder Manual Muscle Testing Right Flexion 4- Good- Extension 4- Good- Abduction (C5) 4- Good- External Rotation 4- Good- Internal Rotation 4- Good- Reason Not Measured Pain Left Flexion 5 Normal Extension 5 Normal Adduction 5 Normal External Rotation 4+ Good+ Internal Rotation 5 Normal Ankle/Foot Strength Ankle and Foot Manual Muscle Testing Right Dorsiflexion (L4) 5 Normal Plantarflexion (S1) 5 Normal Inversion 5 Normal Eversion (S1) 5 Normal Left Dorsiflexion (L4) 4 Good Plantarflexion (S1) 5 Normal Inversion 4 Good Eversion (S1) 4 Good PT-OP-Q Treatments Start: 10/20/18 17:37 Freq: Status: Active Protocol: Document 11/18/18 10:55 [facility] (Rec: 11/18/18 12:04 [facility] [id number]) Gym Equipment Shuttle Balance red clips Details fwd:WBOS, NBOS & staggered stance B Therapeutic Exercises Prone Exercises shoulder Y's and T's Prone Exercise Name Shoulder flexion and hor abd Side bilateral Resistance 1# Reps/Minutes 15 ea Standing Exercises External Rotation Standing Exercise Name Shoulder ER Side bilateral Resistance Lv 2 Equipment Used T-band Reps/Minutes 15 reps Comments in Internal Rotation Standing Exercise Name Shoulder IR Side right Resistance Lv 2 Equipment Used T-band Reps/Minutes 15 reps Comments in Manual Therapy Treatment Soft Tissue Mobilization 1 Body Location Peroneal Mobilization Type Myofascial Release Rolling Sustained Pressure Intensity/Depth Moderate Body Position Prone Joint Mobilizations talus Joint L Direction distraction & AP FM Body Position Supine calcaneous Joint distraction & lat mob FM L Neuro Re-Education Treatment Balance Activities SLS Details SLS Surface firm and blue foam PT-OP-T Assessment and Plan Start: 10/20/18 17:37 Freq: Status: Active Protocol: Document 11/18/18 10:55 [facility] (Rec: 11/18/18 12:04 [facility] [id number]) Physical Therapy Assessment Goals strength Impairment Strength Short Term Goal (STG) Pt will be indep with HEP STG Duration 11/21/18 Prison Goal (LTG) Pt will have 5/5 LE and UE strength to allow full return to sport & work without pain. LTG Duration 12/21/18 ROM Impairment ROM Short Term Goal (STG) Full ROM to ankle to allow improved gait. STG Duration 11/21/18 Prison Goal (LTG) Pt will have full shoulder ROM to allow for typical ADLs without pain. LTG Duration 12/21/18 function Impairment Function Short Term Goal (STG) Pt will be able to tolerate half day of work with no more than 4/10 pain in ankle and shoulder. STG Duration 11/21/18 Prison Goal (LTG) Pt will be able to tolerate full day work without pain and will be able to play with kids without inc pain. LTG Duration 12/21/18 Assessment Summary Assessment Improved foot position after manual treatmen with less ER. He was able to tolerate all exercises without inc pain. Physical Therapy Plan Frequency and Duration Frequency of Treatment 2x/Week Duration of Treatment 2 months Plan of Care Start Date 10/21/18 Plan of Care End Date 12/21/18 Next Visit Focus/Plan Next Note Type Treatment Note Next Visit Plan cont to work on unstable surfaces
--- NOTE | 2018-11-25 15:49 | PT.OTN ---
Current Diagnoses Pain in right shoulder (11/25/18) Pain in left ankle and joints of left foot (11/25/18) Difficulty in walking, not elsewhere classified (11/25/18) Abnormal posture (11/25/18) Weakness (11/25/18) Physical Therapy Treatment Note PT-OP-A Visit Information Start: 10/20/18 17:37 Freq: Status: Active Protocol: Document 11/25/18 14:30 [facility] (Rec: 11/25/18 15:49 [facility] [id number]) Out-Patient Physical Therapy Visit Information Visit Information Visit Type Treatment Note Visit Start Time 14:30 Visit Stop Time 15:10 Total Visit Minutes 40 Visit Number 11/16 Number of STORAGE MANAGER Visits 0 PT-OP-B Current Condition Start: 10/20/18 17:37 Freq: Status: Active Protocol: Document 10/21/18 10:33 [facility] (Rec: 10/21/18 12:10 [facility] [id number]) Current Condition History of Current Condition Onset Date Jun Current Complaints R shoulder & L ankle History of Current Condition Pt was pushing up a garage door and it got stuck and all the weight pushed into his R shoulder. this occured the end of Jun He thought it was just a bruise and they got a new bed and that exhasterbated it significantly. Pt reports ER said they think it was a grade 2 or 3 AC seperation. Pt had part of a week off work but has to go back. 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 He reprots it felt better the few days of rest but has to go back. Pt denies shoulder & neck pain prior. After working a lot, he had shoulder drop where he couldn 't lift his shoulder. This started on October 09. Pt had 9 days off which helped and prior to that was working and it would aggrevate it a lot. Pt reports with ankle he has 2 ankle spains that were significant. Pt had a 500lb despencer pod dropped on it. He fell backwards and it came down on his left ankle and fell back onto his tailbone and broke his tailbone. 2nd time when he was moving into house and stepped into a ditch and rolled ankle and was very swollen. 3rd injury he tripped on a baseball bat and had bruising onto the top of foot & ankle. Pt did not see doctor except for 1st injury and just put a boot on. 1st one happened in 2013, 2015 , 2016 Prior Treatments and Tests Xray of shoulder; just got a topical gel for ankle Future Testing and Treatments Planned MRI of ankle Treatment Goals Patient/Caregiver Goals get to 100%; start playing hockey on roller blades with kids again, work a full day without pain, be able to walk dogs without pain PT-OP-C Subjective Start: 10/20/18 17:37 Freq: Status: Active Protocol: Document 11/25/18 14:30 [facility] (Rec: 11/25/18 15:49 [facility] [id number]) OP-PT Subjective Patient Comments Patient Comments Pt reports shoulder hasn't given him any problems. Reports he has noticed foot position is better but still has to work on it. Reports he still notices clicking. PT-OP-D Balance Start: 10/20/18 17:37 Freq: Status: Active Protocol: Document 10/21/18 10:33 [facility] (Rec: 10/21/18 12:10 [facility] [id number]) Balance Tests Single Limb Standing Single Limb- Right >30sec Single Limb- Left 17 sec w/deviation & popping Tandem Tandem Standing R >30 sec; L>30 sec with 2 deviations PT-OP-G Mobility & Gait Start: 10/20/18 17:37 Freq: Status: Active Protocol: Document 10/21/18 10:33 [facility] (Rec: 10/21/18 12:10 [facility] [id number]) OP Gait Assessment Comments Gait Comments Pt has dec push off B with inc ER of pelvis with push off PT-OP-K Range of Motion Start: 10/20/18 17:37 Freq: Status: Active Protocol: Document 10/21/18 10:33 [facility] (Rec: 10/21/18 12:10 [facility] [id number]) Shoulder Goniometric Range of Motion Shoulder Right Active Flexion 130 Extension 51 Abduction 128 External Rotation at 45 degrees 90 Abduction Internal Rotation 85 Internal Rotation Behind Back (text) T12 Left Active Flexion 174 Extension 60 Abduction 167 External Rotation at 90 degrees 90 Abduction Internal Rotation 70 Internal Rotation Behind Back (text) T4 Ankle and Foot Goniometric Range of Motion Ankle and Foot Left Active Testing Position Sitting Dorsiflexion with Knee Flexed 10 Dorsiflexion with Knee Extended 10 Plantarflexion 39 Inversion 22 Eversion 20 Ankle and Foot ROM Limitations Comments lacking 10 dec of DF w/knee ext PT-OP-L Special Tests Start: 10/20/18 17:37 Freq: Status: Active Protocol: Document 10/21/18 10:33 [facility] (Rec: 10/21/18 12:10 [facility] [id number]) Special Tests Shoulder Special Tests Neer Impingement Test Results positive R Sulcus Test Results neg [place] Ilia Impingement Test Results positive R Empty Can Test Results positive R Speed's Biceps Test Results positive for pain R [place] Test Test Results positive for pain R AC Joint Compression Test Results positive for pain R Foot/Ankle Special Tests Talor Tilt Test Results R positive Anterior Draw Test Results neg L Neural Special Tests- Upper Body Median Nerve Tension Test Results positive R Upper Limb Tension Test Test Results passive abd L ~120 ; R passive about 90 Radial Nerve Tension Test Results positive R Ulnar Nerve Tension Test Results positive R PT-OP-M Strength Start: 10/20/18 17:37 Freq: Status: Active Protocol: Document 10/21/18 10:33 [facility] (Rec: 10/21/18 12:10 [facility] [id number]) Shoulder Strength Shoulder Manual Muscle Testing Right Flexion 4- Good- Extension 4- Good- Abduction (C5) 4- Good- External Rotation 4- Good- Internal Rotation 4- Good- Reason Not Measured Pain Left Flexion 5 Normal Extension 5 Normal Adduction 5 Normal External Rotation 4+ Good+ Internal Rotation 5 Normal Ankle/Foot Strength Ankle and Foot Manual Muscle Testing Right Dorsiflexion (L4) 5 Normal Plantarflexion (S1) 5 Normal Inversion 5 Normal Eversion (S1) 5 Normal Left Dorsiflexion (L4) 4 Good Plantarflexion (S1) 5 Normal Inversion 4 Good Eversion (S1) 4 Good PT-OP-Q Treatments Start: 10/20/18 17:37 Freq: Status: Active Protocol: Document 11/25/18 14:30 [facility] (Rec: 11/25/18 15:49 [facility] [id number]) Gym Equipment Shuttle Balance red clips Details fwd& side:WBOS, NBOS & staggered stance B Comments while throwing ball Manual Therapy Treatment Soft Tissue Mobilization 1 Body Location Peroneal Mobilization Type Myofascial Release Rolling Sustained Pressure Intensity/Depth Moderate Body Position Prone Joint Mobilizations talus Joint L Direction distraction & AP & med glide FM Body Position Supine calcaneous Joint distraction & lat mob FM L Neuro Re-Education Treatment Balance Activities bosu Details lunge B, squat on upside down bosu Reps/Duration 15 ea SLS Details SLS Surface firm with focus on position of body in mirror PT-OP-T Assessment and Plan Start: 10/20/18 17:37 Freq: Status: Active Protocol: Document 11/25/18 14:30 [facility] (Rec: 11/25/18 15:49 [facility] [id number]) Physical Therapy Assessment Goals strength Impairment Strength Short Term Goal (STG) Pt will be indep with HEP STG Duration 11/21/18 Book Cleaner Goal (LTG) Pt will have 5/5 LE and UE strength to allow full return to sport & work without pain. LTG Duration 12/21/18 ROM Impairment ROM Short Term Goal (STG) Full ROM to ankle to allow improved gait. STG Duration 11/21/18 Book Cleaner Goal (LTG) Pt will have full shoulder ROM to allow for typical ADLs without pain. LTG Duration 12/21/18 function Impairment Function Short Term Goal (STG) Pt will be able to tolerate half day of work with no more than 4/10 pain in ankle and shoulder. STG Duration 11/21/18 Book Cleaner Goal (LTG) Pt will be able to tolerate full day work without pain and will be able to play with kids without inc pain. LTG Duration 12/21/18 Assessment Summary Assessment Pt is improving with balance but has difficulty with maintaining neutral balance in SLS. Physical Therapy Plan Frequency and Duration Frequency of Treatment 2x/Week Duration of Treatment 2 months Plan of Care Start Date 10/21/18 Plan of Care End Date 12/21/18 Next Visit Focus/Plan Next Note Type Treatment Note Next Visit Plan cont to work on unstable surfaces w/dynamic activity
--- NOTE | 2018-12-02 10:29 | PT.OTN ---
Current Diagnoses Pain in right shoulder (12/02/18) Pain in left ankle and joints of left foot (12/02/18) Difficulty in walking, not elsewhere classified (12/02/18) Abnormal posture (12/02/18) Weakness (12/02/18) Physical Therapy Treatment Note PT-OP-A Visit Information Start: 10/20/18 17:37 Freq: Status: Active Protocol: Document 12/02/18 09:45 [facility] (Rec: 12/02/18 10:29 [facility] [id number]) Out-Patient Physical Therapy Visit Information Visit Information Visit Type Treatment Note Visit Start Time 09:45 Visit Stop Time 10:30 Total Visit Minutes 45 Visit Number 12/16 Number of CARD PLAYER Visits 0 Evaluation Information Evaluation Date 10/22/15 PT-OP-B Current Condition Start: 10/20/18 17:37 Freq: Status: Active Protocol: Document 10/21/18 10:33 [facility] (Rec: 10/21/18 12:10 [facility] [id number]) Current Condition History of Current Condition Onset Date Jun Current Complaints R shoulder & L ankle History of Current Condition Pt was pushing up a garage door and it got stuck and all the weight pushed into his R shoulder. this occured the end of Jun He thought it was just a bruise and they got a new bed and that exhasterbated it significantly. Pt reports ER said they think it was a grade 2 or 3 AC seperation. Pt had part of a week off work but has to go back. 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 He reprots it felt better the few days of rest but has to go back. Pt denies shoulder & neck pain prior. After working a lot, he had shoulder drop where he couldn 't lift his shoulder. This started on October 09. Pt had 9 days off which helped and prior to that was working and it would aggrevate it a lot. Pt reports with ankle he has 2 ankle spains that were significant. Pt had a 500lb despencer pod dropped on it. He fell backwards and it came down on his left ankle and fell back onto his tailbone and broke his tailbone. 2nd time when he was moving into house and stepped into a ditch and rolled ankle and was very swollen. 3rd injury he tripped on a baseball bat and had bruising onto the top of foot & ankle. Pt did not see doctor except for 1st injury and just put a boot on. 1st one happened in 2013, 2015 , 2016 Prior Treatments and Tests Xray of shoulder; just got a topical gel for ankle Future Testing and Treatments Planned MRI of ankle Treatment Goals Patient/Caregiver Goals get to 100%; start playing hockey on roller blades with kids again, work a full day without pain, be able to walk dogs without pain PT-OP-C Subjective Start: 10/20/18 17:37 Freq: Status: Active Protocol: Document 12/02/18 09:45 [facility] (Rec: 12/02/18 10:29 [facility] [id number]) OP-PT Subjective Patient Comments Patient Comments Pt feels his right shoulder strength is pretty much back to normal. Patient Reported Progress Improving PT-OP-D Balance Start: 10/20/18 17:37 Freq: Status: Active Protocol: Document 10/21/18 10:33 [facility] (Rec: 10/21/18 12:10 [facility] [id number]) Balance Tests Single Limb Standing Single Limb- Right >30sec Single Limb- Left 17 sec w/deviation & popping Tandem Tandem Standing R >30 sec; L>30 sec with 2 deviations PT-OP-G Mobility & Gait Start: 10/20/18 17:37 Freq: Status: Active Protocol: Document 10/21/18 10:33 [facility] (Rec: 10/21/18 12:10 [facility] [id number]) OP Gait Assessment Comments Gait Comments Pt has dec push off B with inc ER of pelvis with push off PT-OP-K Range of Motion Start: 10/20/18 17:37 Freq: Status: Active Protocol: Document 10/21/18 10:33 [facility] (Rec: 10/21/18 12:10 [facility] [id number]) Shoulder Goniometric Range of Motion Shoulder Right Active Flexion 130 Extension 51 Abduction 128 External Rotation at 45 degrees 90 Abduction Internal Rotation 85 Internal Rotation Behind Back (text) T12 Left Active Flexion 174 Extension 60 Abduction 167 External Rotation at 90 degrees 90 Abduction Internal Rotation 70 Internal Rotation Behind Back (text) T4 Ankle and Foot Goniometric Range of Motion Ankle and Foot Left Active Testing Position Sitting Dorsiflexion with Knee Flexed 10 Dorsiflexion with Knee Extended 10 Plantarflexion 39 Inversion 22 Eversion 20 Ankle and Foot ROM Limitations Comments lacking 10 dec of DF w/knee ext PT-OP-L Special Tests Start: 10/20/18 17:37 Freq: Status: Active Protocol: Document 10/21/18 10:33 [facility] (Rec: 10/21/18 12:10 [facility] [id number]) Special Tests Shoulder Special Tests Neer Impingement Test Results positive R Sulcus Test Results neg [place] Impingement Test Results positive R Empty Can Test Results positive R Speed's Biceps Test Results positive for pain R [place] Test Test Results positive for pain R AC Joint Compression Test Results positive for pain R Foot/Ankle Special Tests Talor Tilt Test Results R positive Anterior Draw Test Results neg L Neural Special Tests- Upper Body Median Nerve Tension Test Results positive R Upper Limb Tension Test Test Results passive abd L ~120 ; R passive about 90 Radial Nerve Tension Test Results positive R Ulnar Nerve Tension Test Results positive R PT-OP-M Strength Start: 10/20/18 17:37 Freq: Status: Active Protocol: Document 10/21/18 10:33 [facility] (Rec: 10/21/18 12:10 [facility] [id number]) Shoulder Strength Shoulder Manual Muscle Testing Right Flexion 4- Good- Extension 4- Good- Abduction (C5) 4- Good- External Rotation 4- Good- Internal Rotation 4- Good- Reason Not Measured Pain Left Flexion 5 Normal Extension 5 Normal Adduction 5 Normal External Rotation 4+ Good+ Internal Rotation 5 Normal Ankle/Foot Strength Ankle and Foot Manual Muscle Testing Right Dorsiflexion (L4) 5 Normal Plantarflexion (S1) 5 Normal Inversion 5 Normal Eversion (S1) 5 Normal Left Dorsiflexion (L4) 4 Good Plantarflexion (S1) 5 Normal Inversion 4 Good Eversion (S1) 4 Good PT-OP-Q Treatments Start: 10/20/18 17:37 Freq: Status: Active Protocol: Document 12/02/18 09:45 [facility] (Rec: 12/02/18 10:29 [facility] [id number]) Gym Equipment Shuttle Recovery Unilateral Squats Resistance 75# Shuttle Recovery Platform Unstable Bilateral Squats Resistance 150# Shuttle Recovery Platform Unstable Shuttle Balance red clips Details fwd & side: NBOS, staggered stance /c ball throw Therapeutic Exercises Standing Exercises External Rotation Standing Exercise Name Shoulder ER Side bilateral Resistance Lv 3 Equipment Used T-band Reps/Minutes 15 reps Comments in 90/90 Internal Rotation Standing Exercise Name Shoulder IR Side right Resistance Lv 3 Equipment Used T-band Reps/Minutes 15 reps Comments in 90/90 Shoulder Extension Standing Exercise Name Shoulder Extension Side bilateral Resistance Lv 3 Equipment Used T-band Reps/Minutes 10 reps Comments postural cues Manual Therapy Treatment Soft Tissue Mobilization 1 Body Location Peroneal Mobilization Type Myofascial Release Rolling Sustained Pressure Intensity/Depth Moderate Body Position Prone Joint Mobilizations talus Joint L Direction distraction & AP & med glide FM Body Position Supine calcaneous Joint distraction & lat mob FM L Neuro Re-Education Treatment Balance Activities SLS Details SLS Surface blue foam with focus on position of body in mirror PT-OP-T Assessment and Plan Start: 10/20/18 17:37 Freq: Status: Active Protocol: Document 12/02/18 09:45 [facility] (Rec: 12/02/18 10:29 [facility] [id number]) Physical Therapy Assessment Goals strength Impairment Strength Short Term Goal (STG) Pt will be indep with HEP STG Duration 11/21/18 Group Home Goal (LTG) Pt will have 5/5 LE and UE strength to allow full return to sport & work without pain. LTG Duration 12/21/18 ROM Impairment ROM Short Term Goal (STG) Full ROM to ankle to allow improved gait. STG Duration 11/21/18 Americanization Teacher Goal (LTG) Pt will have full shoulder ROM to allow for typical ADLs without pain. LTG Duration 12/21/18 function Impairment Function Short Term Goal (STG) Pt will be able to tolerate half day of work with no more than 4/10 pain in ankle and shoulder. STG Duration 11/21/18 Group Home Goal (LTG) Pt will be able to tolerate full day work without pain and will be able to play with kids without inc pain. LTG Duration 12/21/18 Assessment Summary Assessment Pt continues to c/o popping in his ankle with SLS, but overall has made excellent improvement since his initial evaluation in both his shoulder and ankle. Physical Therapy Plan Frequency and Duration Frequency of Treatment 2x/Week Duration of Treatment 2 months Plan of Care Start Date 10/21/18 Plan of Care End Date 12/21/18 Next Visit Focus/Plan Next Note Type Treatment Note Next Visit Plan cont to work on unstable surfaces w/dynamic activity
--- NOTE | 2018-12-17 11:13 | PT.OTN ---
Current Diagnoses Pain in right shoulder (12/17/18) Pain in left ankle and joints of left foot (12/17/18) Difficulty in walking, not elsewhere classified (12/17/18) Abnormal posture (12/17/18) Weakness (12/17/18) Physical Therapy Treatment Note PT-OP-A Visit Information Start: 10/20/18 17:37 Freq: Status: Active Protocol: Document 12/17/18 08:15 [facility] (Rec: 12/17/18 10:57 AR [email or web address]) Out-Patient Physical Therapy Visit Information Visit Information Visit Type Progress Note Visit Start Time 08:15 Visit Stop Time 09:00 Total Visit Minutes 45 Visit Number 01/16 Number of EMERGENCY DEPT TECH Visits 0 PT-OP-B Current Condition Start: 10/20/18 17:37 Freq: Status: Active Protocol: Document 10/21/18 10:33 [facility] (Rec: 10/21/18 12:10 [facility] [id number]) Current Condition History of Current Condition Onset Date Jun Current Complaints R shoulder & L ankle History of Current Condition Pt was pushing up a garage door and it got stuck and all the weight pushed into his R shoulder. this occured the end of Jun He thought it was just a bruise and they got a new bed and that exhasterbated it significantly. Pt reports ER said they think it was a grade 2 or 3 AC seperation. Pt had part of a week off work but has to go back. 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 He reprots it felt better the few days of rest but has to go back. Pt denies shoulder & neck pain prior. After working a lot, he had shoulder drop where he couldn 't lift his shoulder. This started on October 09. Pt had 9 days off which helped and prior to that was working and it would aggrevate it a lot. Pt reports with ankle he has 2 ankle spains that were significant. Pt had a 500lb despencer pod dropped on it. He fell backwards and it came down on his left ankle and fell back onto his tailbone and broke his tailbone. 2nd time when he was moving into house and stepped into a ditch and rolled ankle and was very swollen. 3rd injury he tripped on a baseball bat and had bruising onto the top of foot & ankle. Pt did not see doctor except for 1st injury and just put a boot on. 1st one happened in 2013, 2015 , 2016 Prior Treatments and Tests Xray of shoulder; just got a topical gel for ankle Future Testing and Treatments Planned MRI of ankle Treatment Goals Patient/Caregiver Goals get to 100%; start playing hockey on roller blades with kids again, work a full day without pain, be able to walk dogs without pain PT-OP-C Subjective Start: 10/20/18 17:37 Freq: Status: Active Protocol: Document 12/17/18 08:15 [facility] (Rec: 12/17/18 10:57 AR [email or web address]) OP-PT Subjective Patient Comments Patient Comments Pt reports he has had no inc in ankle pain with most activities. However, he notices that it clicks more when he works on unstable surfaces (a hill) and that there is a slight inc in pain. His shoulder has been feeling normal and he has been able to resume archey activities. He has not tried playing hockey or wearing skates yet, so he is unsure how his ankle would do with that activity. PT-OP-D Balance Start: 10/20/18 17:37 Freq: Status: Active Protocol: Document 10/21/18 10:33 [facility] (Rec: 10/21/18 12:10 [facility] [id number]) Balance Tests Single Limb Standing Single Limb- Right >30sec Single Limb- Left 17 sec w/deviation & popping Tandem Tandem Standing R >30 sec; L>30 sec with 2 deviations PT-OP-G Mobility & Gait Start: 10/20/18 17:37 Freq: Status: Active Protocol: Document 10/21/18 10:33 [facility] (Rec: 10/21/18 12:10 [facility] [id number]) OP Gait Assessment Comments Gait Comments Pt has dec push off B with inc ER of pelvis with push off PT-OP-K Range of Motion Start: 10/20/18 17:37 Freq: Status: Active Protocol: Document 12/17/18 08:15 [facility] (Rec: 12/17/18 08:41 [facility] [id number]) Ankle and Foot Goniometric Range of Motion Ankle and Foot Left Active Dorsiflexion with Knee Flexed 15 Dorsiflexion with Knee Extended 5 Plantarflexion 55 Inversion 25 PT-OP-L Special Tests Start: 10/20/18 17:37 Freq: Status: Active Protocol: Document 10/21/18 10:33 [facility] (Rec: 10/21/18 12:10 [facility] [id number]) Special Tests Shoulder Special Tests Neer Impingement Test Results positive R Sulcus Test Results neg [place] Ilia Impingement Test Results positive R Empty Can Test Results positive R Speed's Biceps Test Results positive for pain R [place] Test Test Results positive for pain R AC Joint Compression Test Results positive for pain R Foot/Ankle Special Tests Talor Tilt Test Results R positive Anterior Draw Test Results neg L Neural Special Tests- Upper Body Median Nerve Tension Test Results positive R Upper Limb Tension Test Test Results passive abd L ~120 ; R passive about 90 Radial Nerve Tension Test Results positive R Ulnar Nerve Tension Test Results positive R PT-OP-M Strength Start: 10/20/18 17:37 Freq: Status: Active Protocol: Document 12/17/18 08:15 [facility] (Rec: 12/17/18 08:27 [facility] [id number]) Hip Strength Hip Manual Muscle Testing Left Flexion (L2) 4+ Good+ Extension (S1) 4+ Good+ Abduction 5 Normal External Rotation 5 Normal Internal Rotation 5 Normal Knee Strength Knee Manual Muscle Testing Left Flexion (S2) 5 Normal Extension (L3) 5 Normal Ankle/Foot Strength Ankle and Foot Manual Muscle Testing Left Dorsiflexion (L4) 5 Normal Plantarflexion (S1) 5 Normal Inversion 4+ Good+ Eversion (S1) 5 Normal PT-OP-Q Treatments Start: 10/20/18 17:37 Freq: Status: Active Protocol: Document 12/17/18 08:15 [facility] (Rec: 12/17/18 10:57 [facility] [email or web address]) Manual Therapy Treatment Soft Tissue Mobilization 1 Body Location Peroneal & lat gastroc Mobilization Type Myofascial Release Rolling Sustained Pressure Intensity/Depth Deep Body Position Sidelying Comments with active eversion contract/ relax Neuro Re-Education Treatment Balance Activities wobble board Details WBOS Reps/Duration 2x30 sec Comments heavy cueing for foot posture to avoid resting on lateral ankle foam roller Details 1/2 foam roll tandem stance Surface curved side up Equipment black foam, roll Reps/Duration 4x30 sec Comments heavy cueing for foot posture to avoid resting on lateral ankle PT-OP-T Assessment and Plan Start: 10/20/18 17:37 Freq: Status: Active Protocol: Document 12/17/18 08:15 [facility] (Rec: 12/17/18 10:57 [facility] [email or web address]) Physical Therapy Assessment Goals strength Impairment Strength Short Term Goal (STG) Pt will be indep with HEP STG Duration goal met Stationary Engineer Apprentice Goal (LTG) Pt will have 5/5 LE and UE strength to allow full return to sport & work without pain. LTG Duration progressing ROM Impairment ROM Short Term Goal (STG) Full ROM to ankle to allow improved gait. STG Duration progressing Stationary Engineer Apprentice Goal (LTG) Pt will have full shoulder ROM to allow for typical ADLs without pain. LTG Duration goal met function Impairment Function Short Term Goal (STG) Pt will be able to tolerate half day of work with no more than 4/10 pain in ankle and shoulder. STG Duration goal met Fdc Goal (LTG) Pt will be able to tolerate full day work without pain and will be able to play with kids without inc pain. LTG Duration progressing Progress Towards Goals Progress Towards Goals Progressing Toward Goals Goals Met Assessment Summary Assessment Patient has been able to return to most activity without increased pain in his ankle. He has been able to resume all activities w/o shoulder pain. Shoulder strength is 5/5 and ROM is WNL . Pt reports no further issues with shoulder functionally. Ankle stability and posturing during balance activities on unstable surface are still poor but pt was educated on ankle posture. Poor ankle posture was noted as a contributor to clicking in ankle. Pt is progressing well with LE strength and ankle ROM , but still has some limitations in inversion and dorsiflexion range. Physical Therapy Plan Frequency and Duration Frequency of Treatment 1x/Week Duration of Treatment 2 months Plan of Care Start Date 12/17/18 Plan of Care End Date 02/17/19 Therapeutic Interventions Therapeutic Interventions Balance Training Coordination Training Gait Training Home Exercise Program Joint Mobilizations Manual Therapy Neuromuscular Re-education Patient/Caregiver Education Self-Care/Home Management Soft Tissue Mobilization Taping Therapeutic Activities Therapeutic Exercises Next Visit Focus/Plan Next Note Type Treatment Note Next Visit Plan add weight acceptance exercises, progress balance on uneven surfaces and foot posturing.
--- NOTE | 2018-12-17 11:13 | PT.OPPOC ---
Current Diagnoses Pain in right shoulder (12/17/18) Pain in left ankle and joints of left foot (12/17/18) Difficulty in walking, not elsewhere classified (12/17/18) Abnormal posture (12/17/18) Weakness (12/17/18) Provider Visit Care Team Role Provider Type William John MD Attending Provider Non-Staff Specialty: Emergency Medicine Address: [address] [place] [address], [id number] Email: Plan Of Care PT-OP-T Assessment and Plan Start: 10/20/18 17:37 Freq: Status: Active Protocol: Document 12/17/18 08:15 [facility] (Rec: 12/17/18 10:57 [facility] [email or web address]) Physical Therapy Assessment Goals strength Impairment Strength Short Term Goal (STG) Pt will be indep with HEP STG Duration goal met Dairy Feed Sales Consultant Goal (LTG) Pt will have 5/5 LE and UE strength to allow full return to sport & work without pain. LTG Duration progressing ROM Impairment ROM Short Term Goal (STG) Full ROM to ankle to allow improved gait. STG Duration progressing Intermediate Goal (LTG) Pt will have full shoulder ROM to allow for typical ADLs without pain. LTG Duration goal met function Impairment Function Short Term Goal (STG) Pt will be able to tolerate half day of work with no more than 4/10 pain in ankle and shoulder. STG Duration goal met Dairy Feed Sales Consultant Goal (LTG) Pt will be able to tolerate full day work without pain and will be able to play with kids without inc pain. LTG Duration progressing Progress Towards Goals Progress Towards Goals Progressing Toward Goals Goals Met Assessment Summary Assessment Patient has been able to return to most activity without increased pain in his ankle. He has been able to resume all activities w/o shoulder pain. Shoulder strength is 5/5 and ROM is WNL . Pt reports no further issues with shoulder functionally. Ankle stability and posturing during balance activities on unstable surface are still poor but pt was educated on ankle posture. Poor ankle posture was noted as a contributor to clicking in ankle. Pt is progressing well with LE strength and ankle ROM , but still has some limitations in inversion and dorsiflexion range. Physical Therapy Plan Frequency and Duration Frequency of Treatment 1x/Week Duration of Treatment 2 months Plan of Care Start Date 12/17/18 Plan of Care End Date 02/17/19 Therapeutic Interventions Therapeutic Interventions Balance Training Coordination Training Gait Training Home Exercise Program Joint Mobilizations Manual Therapy Neuromuscular Re-education Patient/Caregiver Education Self-Care/Home Management Soft Tissue Mobilization Taping Therapeutic Activities Therapeutic Exercises Next Visit Focus/Plan Next Note Type Treatment Note Next Visit Plan add weight acceptance exercises, progress balance on uneven surfaces and foot posturing. Plan of Care Dates Plan of Care Start Date 12/17/18 Plan of Care End Date 02/17/19 Please Sign and Return: I have reviewed this Plan of Care and certify that the skilled therapy services above are required to meet the patient?s needs. Physician Signature Date Printed Name and Credentials Clinical Instructor Signature Printed Name and Credentials
--- NOTE | 2018-12-31 18:21 | PT.OTN ---
Current Diagnoses Pain in right shoulder (12/31/18) Pain in left ankle and joints of left foot (12/31/18) Difficulty in walking, not elsewhere classified (12/31/18) Abnormal posture (12/31/18) Weakness (12/31/18) Physical Therapy Treatment Note PT-OP-A Visit Information Start: 10/20/18 17:37 Freq: Status: Active Protocol: Document 12/31/18 18:17 [facility] (Rec: 12/31/18 18:20 [facility] [id number]) Out-Patient Physical Therapy Visit Information Visit Information Visit Type Treatment Note Visit Start Time 10:30 Visit Stop Time 11:10 Total Visit Minutes 40 Visit Number 02/16 Number of INDUSTRIAL AUTOMATION SPECIALIST Visits 0 PT-OP-B Current Condition Start: 10/20/18 17:37 Freq: Status: Active Protocol: Document 10/21/18 10:33 [facility] (Rec: 10/21/18 12:10 [facility] [id number]) Current Condition History of Current Condition Onset Date Jun Current Complaints R shoulder & L ankle History of Current Condition Pt was pushing up a garage door and it got stuck and all the weight pushed into his R shoulder. this occured the end of Jun He thought it was just a bruise and they got a new bed and that exhasterbated it significantly. Pt reports ER said they think it was a grade 2 or 3 AC seperation. Pt had part of a week off work but has to go back. 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 He reprots it felt better the few days of rest but has to go back. Pt denies shoulder & neck pain prior. After working a lot, he had shoulder drop where he couldn 't lift his shoulder. This started on October 09. Pt had 9 days off which helped and prior to that was working and it would aggrevate it a lot. Pt reports with ankle he has 2 ankle spains that were significant. Pt had a 500lb despencer pod dropped on it. He fell backwards and it came down on his left ankle and fell back onto his tailbone and broke his tailbone. 2nd time when he was moving into house and stepped into a ditch and rolled ankle and was very swollen. 3rd injury he tripped on a baseball bat and had bruising onto the top of foot & ankle. Pt did not see doctor except for 1st injury and just put a boot on. 1st one happened in 2013, 2015 , 2016 Prior Treatments and Tests Xray of shoulder; just got a topical gel for ankle Future Testing and Treatments Planned MRI of ankle Treatment Goals Patient/Caregiver Goals get to 100%; start playing hockey on roller blades with kids again, work a full day without pain, be able to walk dogs without pain PT-OP-C Subjective Start: 10/20/18 17:37 Freq: Status: Active Protocol: Document 12/31/18 18:17 [facility] (Rec: 12/31/18 18:20 [facility] [id number]) OP-PT Subjective Patient Comments Patient Comments Pt reports still popping but compliance with HEP and working on foot position PT-OP-D Balance Start: 10/20/18 17:37 Freq: Status: Active Protocol: Document 10/21/18 10:33 [facility] (Rec: 10/21/18 12:10 [facility] [id number]) Balance Tests Single Limb Standing Single Limb- Right >30sec Single Limb- Left 17 sec w/deviation & popping Tandem Tandem Standing R >30 sec; L>30 sec with 2 deviations PT-OP-G Mobility & Gait Start: 10/20/18 17:37 Freq: Status: Active Protocol: Document 10/21/18 10:33 [facility] (Rec: 10/21/18 12:10 [facility] [id number]) OP Gait Assessment Comments Gait Comments Pt has dec push off B with inc ER of pelvis with push off PT-OP-K Range of Motion Start: 10/20/18 17:37 Freq: Status: Active Protocol: Document 12/17/18 08:15 [facility] (Rec: 12/17/18 08:41 [facility] [id number]) Ankle and Foot Goniometric Range of Motion Ankle and Foot Left Active Dorsiflexion with Knee Flexed 15 Dorsiflexion with Knee Extended 5 Plantarflexion 55 Inversion 25 PT-OP-L Special Tests Start: 10/20/18 17:37 Freq: Status: Active Protocol: Document 10/21/18 10:33 [facility] (Rec: 10/21/18 12:10 [facility] [id number]) Special Tests Shoulder Special Tests Neer Impingement Test Results positive R Sulcus Test Results neg [place] Ilia Impingement Test Results positive R Empty Can Test Results positive R Speed's Biceps Test Results positive for pain R [place] Test Test Results positive for pain R AC Joint Compression Test Results positive for pain R Foot/Ankle Special Tests Talor Tilt Test Results R positive Anterior Draw Test Results neg L Neural Special Tests- Upper Body Median Nerve Tension Test Results positive R Upper Limb Tension Test Test Results passive abd L ~120 ; R passive about 90 Radial Nerve Tension Test Results positive R Ulnar Nerve Tension Test Results positive R PT-OP-M Strength Start: 10/20/18 17:37 Freq: Status: Active Protocol: Document 12/17/18 08:15 [facility] (Rec: 12/17/18 08:27 [facility] [id number]) Hip Strength Hip Manual Muscle Testing Left Flexion (L2) 4+ Good+ Extension (S1) 4+ Good+ Abduction 5 Normal External Rotation 5 Normal Internal Rotation 5 Normal Knee Strength Knee Manual Muscle Testing Left Flexion (S2) 5 Normal Extension (L3) 5 Normal Ankle/Foot Strength Ankle and Foot Manual Muscle Testing Left Dorsiflexion (L4) 5 Normal Plantarflexion (S1) 5 Normal Inversion 4+ Good+ Eversion (S1) 5 Normal PT-OP-Q Treatments Start: 10/20/18 17:37 Freq: Status: Active Protocol: Document 12/31/18 18:17 [facility] (Rec: 12/31/18 18:20 [facility] [id number]) Therapeutic Exercises Standing Exercises wt shift Standing Exercise Name into wt acceptance Side bilateral Reps/Minutes 10 Comments in mirror Manual Therapy Treatment Soft Tissue Mobilization tyson Body Location circumduction internally Joint Mobilizations navicular Direction med FM cuneiforms Joint 1st, 2nd, 3rd Direction spreading FM talus Joint L Direction distraction & AP & med glide FM Body Position Supine calcaneous Joint distraction & lat mob FM L Neuro Re-Education Treatment Balance Activities tandem Details stance ceuing fro foot position foam roller Details 1/2 foam roll tandem stance Surface curved side up Equipment black foam, roll Comments heavy cueing for foot posture to avoid resting on lateral ankle PT-OP-T Assessment and Plan Start: 10/20/18 17:37 Freq: Status: Active Protocol: Document 12/31/18 18:17 [facility] (Rec: 12/31/18 18:20 [facility] [id number]) Physical Therapy Assessment Goals strength Impairment Strength Short Term Goal (STG) Pt will be indep with HEP STG Duration goal met Foreign Correspondent Goal (LTG) Pt will have 5/5 LE and UE strength to allow full return to sport & work without pain. LTG Duration progressing ROM Impairment ROM Short Term Goal (STG) Full ROM to ankle to allow improved gait. STG Duration progressing Foreign Correspondent Goal (LTG) Pt will have full shoulder ROM to allow for typical ADLs without pain. LTG Duration goal met function Impairment Function Short Term Goal (STG) Pt will be able to tolerate half day of work with no more than 4/10 pain in ankle and shoulder. STG Duration goal met Foreign Correspondent Goal (LTG) Pt will be able to tolerate full day work without pain and will be able to play with kids without inc pain. LTG Duration progressing Assessment Summary Assessment Improved foot positioning after treatment today. pt able to adjust foot position but requires cuieng otherwise has signifiacnt weight lat. Pt improved wt shift and acceptance with use of mirror. Physical Therapy Plan Frequency and Duration Frequency of Treatment 1x/Week Duration of Treatment 2 months Plan of Care Start Date 12/17/18 Plan of Care End Date 02/17/19 Next Visit Focus/Plan Next Note Type Treatment Note Next Visit Plan progress balance on uneven surfaces & foot position
--- NOTE | 2019-01-07 16:54 | PT.OTN ---
Current Diagnoses Pain in right shoulder (01/07/19) Pain in left ankle and joints of left foot (01/07/19) Difficulty in walking, not elsewhere classified (01/07/19) Abnormal posture (01/07/19) Weakness (01/07/19) Physical Therapy Treatment Note PT-OP-A Visit Information Start: 10/20/18 17:37 Freq: Status: Active Protocol: Document 01/07/19 12:11 AR (Rec: 01/07/19 12:26 AR [id number]) Out-Patient Physical Therapy Visit Information Visit Information Visit Type Treatment Note Visit Start Time 09:50 Visit Stop Time 10:30 Total Visit Minutes 40 Visit Number 03/18 Number of SALOON KEEPER Visits 0 PT-OP-B Current Condition Start: 10/20/18 17:37 Freq: Status: Active Protocol: Document 10/21/18 10:33 [facility] (Rec: 10/21/18 12:10 [facility] [id number]) Current Condition History of Current Condition Onset Date Jun Current Complaints R shoulder & L ankle History of Current Condition Pt was pushing up a garage door and it got stuck and all the weight pushed into his R shoulder. this occured the end of Jun He thought it was just a bruise and they got a new bed and that exhasterbated it significantly. Pt reports ER said they think it was a grade 2 or 3 AC seperation. Pt had part of a week off work but has to go back. 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 He reprots it felt better the few days of rest but has to go back. Pt denies shoulder & neck pain prior. After working a lot, he had shoulder drop where he couldn 't lift his shoulder. This started on October 09. Pt had 9 days off which helped and prior to that was working and it would aggrevate it a lot. Pt reports with ankle he has 2 ankle spains that were significant. Pt had a 500lb despencer pod dropped on it. He fell backwards and it came down on his left ankle and fell back onto his tailbone and broke his tailbone. 2nd time when he was moving into house and stepped into a ditch and rolled ankle and was very swollen. 3rd injury he tripped on a baseball bat and had bruising onto the top of foot & ankle. Pt did not see doctor except for 1st injury and just put a boot on. 1st one happened in 2013, 2015 , 2016 Prior Treatments and Tests Xray of shoulder; just got a topical gel for ankle Future Testing and Treatments Planned MRI of ankle Treatment Goals Patient/Caregiver Goals get to 100%; start playing hockey on roller blades with kids again, work a full day without pain, be able to walk dogs without pain PT-OP-C Subjective Start: 10/20/18 17:37 Freq: Status: Active Protocol: Document 01/07/19 12:11 AR (Rec: 01/07/19 12:26 AR [id number]) OP-PT Subjective Patient Comments Patient Comments Pt reports popping in his lateral foot and ankle has continued and he is having some pain with standing in proper foot position. PT-OP-D Balance Start: 10/20/18 17:37 Freq: Status: Active Protocol: Document 10/21/18 10:33 [facility] (Rec: 10/21/18 12:10 [facility] [id number]) Balance Tests Single Limb Standing Single Limb- Right >30sec Single Limb- Left 17 sec w/deviation & popping Tandem Tandem Standing R >30 sec; L>30 sec with 2 deviations PT-OP-G Mobility & Gait Start: 10/20/18 17:37 Freq: Status: Active Protocol: Document 10/21/18 10:33 [facility] (Rec: 10/21/18 12:10 [facility] [id number]) OP Gait Assessment Comments Gait Comments Pt has dec push off B with inc ER of pelvis with push off PT-OP-K Range of Motion Start: 10/20/18 17:37 Freq: Status: Active Protocol: Document 12/17/18 08:15 [facility] (Rec: 12/17/18 08:41 [facility] [id number]) Ankle and Foot Goniometric Range of Motion Ankle and Foot Left Active Dorsiflexion with Knee Flexed 15 Dorsiflexion with Knee Extended 5 Plantarflexion 55 Inversion 25 PT-OP-L Special Tests Start: 10/20/18 17:37 Freq: Status: Active Protocol: Document 10/21/18 10:33 [facility] (Rec: 10/21/18 12:10 [facility] [id number]) Special Tests Shoulder Special Tests Neer Impingement Test Results positive R Sulcus Test Results neg [place] Ilia Impingement Test Results positive R Empty Can Test Results positive R Speed's Biceps Test Results positive for pain R [place] Test Test Results positive for pain R AC Joint Compression Test Results positive for pain R Foot/Ankle Special Tests Talor Tilt Test Results R positive Anterior Draw Test Results neg L Neural Special Tests- Upper Body Median Nerve Tension Test Results positive R Upper Limb Tension Test Test Results passive abd L ~120 ; R passive about 90 Radial Nerve Tension Test Results positive R Ulnar Nerve Tension Test Results positive R PT-OP-M Strength Start: 10/20/18 17:37 Freq: Status: Active Protocol: Document 12/17/18 08:15 [facility] (Rec: 12/17/18 08:27 [facility] [id number]) Hip Strength Hip Manual Muscle Testing Left Flexion (L2) 4+ Good+ Extension (S1) 4+ Good+ Abduction 5 Normal External Rotation 5 Normal Internal Rotation 5 Normal Knee Strength Knee Manual Muscle Testing Left Flexion (S2) 5 Normal Extension (L3) 5 Normal Ankle/Foot Strength Ankle and Foot Manual Muscle Testing Left Dorsiflexion (L4) 5 Normal Plantarflexion (S1) 5 Normal Inversion 4+ Good+ Eversion (S1) 5 Normal PT-OP-Q Treatments Start: 10/20/18 17:37 Freq: Status: Active Protocol: Document 01/07/19 12:11 AR (Rec: 01/07/19 12:26 AR [id number]) Therapeutic Exercises Sitting Exercises toe spreading Sitting Exercise Name toe spreading Side left Reps/Minutes 15 reps Comments pt educated to do stretch w/ fingers bt toes prior (when performing HEP) great toe abduction Sitting Exercise Name great toe abduction Side left Equipment Used manually cueing at 1st & 5th met head Reps/Minutes 10 reps Comments only minimal movement great toe lifts and lowers Sitting Exercise Name isolating big toe flexion & return to neutral Side left Equipment Used manually cueing at 1st & 5th met head Reps/Minutes 20 reps Comments pt had difficulty isolating movement without foot and ankle movement toe lowers Sitting Exercise Name all toes together, med->lat, lat->med Side left Equipment Used manually cueing at 1st & 5th met head Reps/Minutes 30 reps Comments pt struggled to lower toes individually toe lifts Sitting Exercise Name with 1st and 5th met heads on ground Side left Equipment Used manually cueing at 1st & 5th met head Reps/Minutes 30 reps Comments pt struggled with lifting toes w/o rolling ankle side to side toe scrunches Sitting Exercise Name with towel Side bilateral Reps/Minutes 10 reps Comments pt was cued to keep heels on ground Standing Exercises wt shift Standing Exercise Name into wt acceptance Side bilateral Reps/Minutes 10 Comments in mirror, with counter support Manual Therapy Treatment Joint Mobilizations cuneiforms Joint 1st, 2nd, 3rd Direction spreading FM talus Joint L Direction AP in dorsiflexion Body Position Supine calcaneous Joint distraction & lat mob FM L Body Position Sidelying PT-OP-T Assessment and Plan Start: 10/20/18 17:37 Freq: Status: Active Protocol: Document 01/07/19 12:11 AR (Rec: 01/07/19 12:26 AR [id number]) Physical Therapy Assessment Goals strength Impairment Strength Short Term Goal (STG) Pt will be indep with HEP STG Duration goal met Group Home Goal (LTG) Pt will have 5/5 LE and UE strength to allow full return to sport & work without pain. LTG Duration 02/17/2019 ROM Impairment ROM Short Term Goal (STG) Full ROM to ankle to allow improved gait. STG Duration progressing Group Home Goal (LTG) Pt will have full shoulder ROM to allow for typical ADLs without pain. LTG Duration goal met function Impairment Function Short Term Goal (STG) Pt will be able to tolerate half day of work with no more than 4/10 pain in ankle and shoulder. STG Duration goal met Group Home Goal (LTG) Pt will be able to tolerate full day work without pain and will be able to play with kids without inc pain. LTG Duration 02/17/2019 Assessment Summary Assessment Weakness of foot intrinsics may be leading to instability of foot and popping that pt reports. Pt still presents with ankle instability and feels more comfortable resting in supination. Pt will benefit from continued strength training and neuromuscular re-education in order to decrease instability and pain with weight bearing activities. Physical Therapy Plan Frequency and Duration Frequency of Treatment 1x/Week Duration of Treatment 2 months Plan of Care Start Date 12/17/18 Plan of Care End Date 02/17/19 Next Visit Focus/Plan Next Note Type Treatment Note Next Visit Plan cont foot core exercises, progress balance on uneven surfaces if pt tolerates
--- NOTE | 2019-05-12 11:12 | PT.OPDS ---
Current Diagnoses Pain in right shoulder (01/07/19) Pain in left ankle and joints of left foot (01/07/19) Difficulty in walking, not elsewhere classified (01/07/19) Abnormal posture (01/07/19) Weakness (01/07/19) Visit Care Team Role Provider Type William John MD Attending Provider Non-Staff Specialty: Emergency Medicine Address: [address] [place] [address], [place], [address] Email: Visit Number Visit Number 03/18 Discharge Summary PT-OP-B Current Condition Start: 10/20/18 17:37 Freq: Status: Active Protocol: Document 10/21/18 10:33 [facility] (Rec: 10/21/18 12:10 [facility] [id number]) Current Condition History of Current Condition Onset Date Jun Current Complaints R shoulder & L ankle History of Current Condition Pt was pushing up a garage door and it got stuck and all the weight pushed into his R shoulder. this occured the end of Jun He thought it was just a bruise and they got a new bed and that exhasterbated it significantly. Pt reports ER said they think it was a grade 2 or 3 AC seperation. Pt had part of a week off work but has to go back. 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 He reprots it felt better the few days of rest but has to go back. Pt denies shoulder & neck pain prior. After working a lot, he had shoulder drop where he couldn 't lift his shoulder. This started on October 09. Pt had 9 days off which helped and prior to that was working and it would aggrevate it a lot. Pt reports with ankle he has 2 ankle spains that were significant. Pt had a 500lb despencer pod dropped on it. He fell backwards and it came down on his left ankle and fell back onto his tailbone and broke his tailbone. 2nd time when he was moving into house and stepped into a ditch and rolled ankle and was very swollen. 3rd injury he tripped on a baseball bat and had bruising onto the top of foot & ankle. Pt did not see doctor except for 1st injury and just put a boot on. 1st one happened in 2013, 2nd 2015 , 3rd 2017 Prior Treatments and Tests Xray of shoulder; just got a topical gel for ankle Future Testing and Treatments Planned MRI of ankle Treatment Goals Patient/Caregiver Goals get to 100%; start playing hockey on roller blades with kids again, work a full day without pain, be able to walk dogs without pain PT-OP-C Subjective Start: 10/20/18 17:37 Freq: Status: Active Protocol: Document 01/07/19 12:11 [facility] (Rec: 01/07/19 12:26 AR [id number]) OP-PT Subjective Patient Comments Patient Comments Pt reports popping in his lateral foot and ankle has continued and he is having some pain with standing in proper foot position. PT-OP-D Balance Start: 10/20/18 17:37 Freq: Status: Active Protocol: Document 10/21/18 10:33 [facility] (Rec: 10/21/18 12:10 [facility] [id number]) Balance Tests Single Limb Standing Single Limb- Right >30sec Single Limb- Left 17 sec w/deviation & popping Tandem Tandem Standing R >30 sec; L>30 sec with 2 deviations PT-OP-G Mobility & Gait Start: 10/20/18 17:37 Freq: Status: Active Protocol: Document 10/21/18 10:33 [facility] (Rec: 10/21/18 12:10 [facility] [id number]) OP Gait Assessment Comments Gait Comments Pt has dec push off B with inc ER of pelvis with push off PT-OP-K Range of Motion Start: 10/20/18 17:37 Freq: Status: Active Protocol: Document 12/17/18 08:15 [facility] (Rec: 12/17/18 08:41 [facility] [id number]) Ankle and Foot Goniometric Range of Motion Ankle and Foot Left Active Dorsiflexion with Knee Flexed 15 Dorsiflexion with Knee Extended 5 Plantarflexion 55 Inversion 25 PT-OP-L Special Tests Start: 10/20/18 17:37 Freq: Status: Active Protocol: Document 10/21/18 10:33 [facility] (Rec: 10/21/18 12:10 [facility] [id number]) Special Tests Shoulder Special Tests Neer Impingement Test Results positive R Sulcus Test Results neg [place] Ilia Impingement Test Results positive R Empty Can Test Results positive R Speed's Biceps Test Results positive for pain R [place] Test Test Results positive for pain R AC Joint Compression Test Results positive for pain R Foot/Ankle Special Tests Talor Tilt Test Results R positive Anterior Draw Test Results neg L Neural Special Tests- Upper Body Median Nerve Tension Test Results positive R Upper Limb Tension Test Test Results passive abd L ~120 ; R passive about 90 Radial Nerve Tension Test Results positive R Ulnar Nerve Tension Test Results positive R PT-OP-M Strength Start: 10/20/18 17:37 Freq: Status: Active Protocol: Document 12/17/18 08:15 [facility] (Rec: 12/17/18 08:27 [facility] [id number]) Hip Strength Hip Manual Muscle Testing Left Flexion (L2) 4+ Good+ Extension (S1) 4+ Good+ Abduction 5 Normal External Rotation 5 Normal Internal Rotation 5 Normal Knee Strength Knee Manual Muscle Testing Left Flexion (S2) 5 Normal Extension (L3) 5 Normal Ankle/Foot Strength Ankle and Foot Manual Muscle Testing Left Dorsiflexion (L4) 5 Normal Plantarflexion (S1) 5 Normal Inversion 4+ Good+ Eversion (S1) 5 Normal PT-OP-T Assessment and Plan Start: 10/20/18 17:37 Freq: Status: Active Protocol: Document 05/12/19 11:03 [facility] (Rec: 05/12/19 11:12 [facility] [id number]) Physical Therapy Assessment Assessment Summary Assessment Pt last seen Jan 07, 2019 d/t date expiration of authorization. Pt was to try to get doctor to authorize more PT, but a new auth was never received. he made great improvement where his shoulder was not bothering anymore and his ankle was significantly improved and pt had dec pain and improved strength and balance. Physical Therapy Plan Discharge Physical Therapy Discharge Reasons No Longer Attending PT
== END 2019-05-24 13:29 ==
LOC: PHYS 09:45
PROVIDERS: Visit Provider Emergency Medicine Emergency Medical Services
DX: M25.511 Pain in right shoulder (principal); M25.572 Pain in left ankle and joints of left foot; R29.3 Abnormal posture; R53.1 Weakness; R26.2 Difficulty in walking, not elsewhere classified
CPT/HCPCS: 97110; 97112; 97140; 97162

== ENCOUNTER → 2023-07-21 15:40 | Outpatient (CLI) | payer OTHER, SELFPAY ==
--- NOTE | 2023-07-21 | DI.MRI.S_ITS ---
PROCEDURE: MRFOOT LT WO CON INDICATIONS: SPONTANEOUS RUPTURE OF PLANTAR FASCIA TECHNIQUE: Multiphasic, multisequence MRI of the forefoot was performed, without intravenous contrast administration. COMPARISON: None. FINDINGS: Image quality: Excellent. Bones and joints: No bone marrow contusions or metatarsal stress fractures. The sesamoid bones appear in expected positions, without internal edema. No metatarsophalangeal joint degeneration. No intraosseous lesions. Soft tissues: The visualized plantar foot muscles demonstrate normal signal and bulk. Visualized flexor and extensor tendons appear intact, without tenosynovitis. The distal insertions of the peroneus brevis and longus tendons appear intact. The principal Lisfranc ligament appears intact. No soft tissue ganglion cysts or bursal fluid collections. Sagittal images demonstrate no evidence for plantar plate tears. The included portion of plantar fascia is grossly intact. IMPRESSION: 1. The included portion of plantar fascia in midfoot and forefoot are grossly intact. 2. No marrow edema. No fracture or dislocation. No suspicious bony lesions. 3. Forefoot tendons and ligaments are grossly intact. No gross plantar plate tear. Dictated by: Eliseo Umanzor M.D. on 07/22/2023 at 11:29 Approved by: Eliseo Umanzor M.D. on 07/22/2023 at 11:34
--- NOTE | 2023-07-21 | DI.MRI.S_ITS ---
PROCEDURE: MR ANKLE LT WO CON INDICATIONS: SPONTANEOUS RUPTURE OF PLANTAR FASCIA TECHNIQUE: Noncontrast sagittal T1 spin echo and T2 fast spin echo with fat saturation, axial proton density fast spin echo and T2 fast spin echo with fat saturation, coronal T1 spin echo and T2 fast spin echo with fat saturation through the ankle/hindfoot. COMPARISON: [facility], MR, MR ANKLE LT WO CON, 11/05/2018, 11:54. FINDINGS: Image quality: Excellent. Bones and joints: Marrow edema is seen involving lateral malleolus without discrete fracture line. No hindfoot coalitions. No osteochondral injuries of the talar dome. Small amount of tibiotalar joint effusion is seen, no gross loose bodies. Medial structures: The posterior tibialis is thickened with small amount of fluid distending tendon sheath at the level of medial malleolus extending to the level talonavicular joint. flexor digitorum longus, and flexor hallucis longus tendons are intact. The posterior tibial neurovascular bundle appears normal within the tarsal tunnel, without extrinsic mass effect. The deltoid ligament is intact. The spring ligament complex is thickened. Lateral structures: The anterior talofibular, calcaneofibular, and posterior talofibular ligaments appear thickened . More superiorly, the anterior and posterior tibiofibular ligaments also appear thickened with intrasubstance T2 hyperintense signal. The tibiofibular syndesmosis is normal in width at 2 mm or less. The peroneus longus and brevis tendons are thickened at the level of lateral malleolus extending to the level of calcaneocuboid joint. The sinus tarsi demonstrates normal fatty signal, without edema, fibrosis, or cyst formation. Visualized sinus tarsi components (cervical ligament, interosseous talocalcaneal ligament, roots of the inferior extensor retinaculum) appear normal. The calcaneonavicular and calcaneocuboid components of the bifurcate ligament appear intact. The dorsal calcaneocuboid ligament appears intact. Anterior structures: The tibialis anterior, extensor hallucis longus, and extensor digitorum longus tendons appear intact. The dorsal talonavicular ligament appears intact. Posterior and plantar structures: Thickened distal Achilles tendon at its posterior calcaneal insertion is seen. Mildly thickened medial band of plantar fascia near its insertion on plantar calcaneus seen. No plantar fascia rupture. No abductor digiti quinti muscle atrophy to suggest Weber neuropathy. IMPRESSION: 1. No plantar fascial rupture. Mildly thickened medial band of plantar fascia near its insertion on plantar calcaneus consistent with low-grade plantar fasciitis. 2. Distal Achilles tendinosis. No Achilles tendon rupture. 3. Contusion involving lateral malleolus. No fracture or dislocation. No osteochondral injuries of talar dome. Small joint effusion, no gross loose bodies. 4. Low-grade tenosynovitis involving posterior tibialis tendon as above. Tendinosis also seen involving peroneus tendon as above. 5. Low-grade sprain involving spring ligament complex. 6. Low-grade sprain involving lateral ankle ligaments. No ankle ligament rupture. Dictated by: Eilseo Umanzor M.D. on 07/22/2023 at 11:35 Approved by: Eliseo Umanzor M.D. on 07/22/2023 at 12:08
== END ==
PROVIDERS: Referring Provider Podiatrist; Visit Provider Podiatrist
DX: M62.17 Other rupture of muscle (nontraumatic), ankle and foot (principal); S90.02XA Contusion of left ankle, initial encounter; M25.472 Effusion, left ankle; M65.872 Other synovitis and tenosynovitis, left ankle and foot; S93.492A Sprain of other ligament of left ankle, initial encounter
CPT/HCPCS: 73718; 73721

== ENCOUNTER → 2024-01-13 14:40 | Outpatient (CLI) | payer OTHER, SELFPAY ==
--- NOTE | 2024-01-13 14:41 | DI.MRI.S_ITS ---
PROCEDURE: MR CERVICAL SPINE WO CON INDICATIONS: CERVICAL DISC DISORDER AT C5-C6 LEVEL WITH RADIC TECHNIQUE: Noncontrast sagittal T1 spin echo and T2 fast spin echo, sagittal STIR, foraminal oblique sagittal T2 fast spin echo, and axial gradient echo or T2 fast spin echo through the cervical spine. COMPARISON: None. FINDINGS: Image quality: Excellent. Alignment and Curvature: There is normal bony alignment. Bone Marrow: Marrow demonstrates normal overall signal. Spinal Cord: Visualized spinal cord has normal size and signal. No cerebellar tonsillar herniation. Paraspinous Soft Tissues: No paravertebral masses. Prevertebral soft tissues are normal in thickness. C2-C3: Normal appearance. C3-C4: Minimal degenerative disc height reduction and desiccation, very slight posterior disc bulge without definite spinal or foraminal stenosis. C4-C5: Normal appearance. C5-C6: [id number] degenerative disc disease is present at this level within asymmetric posterolateral and lateral disc bulge on the right which does not produce significant impingement on the right anterior cervical cord at this level, but which causes significant right-sided nor foraminal stenosis and impingement on the course of the C6 nerve root on the right. C6-C7: Normal appearance. C7-T1: Normal appearance. IMPRESSION: No disc herniation found. C5-C6 significant posterolateral and lateral disc bulge causing moderate foraminal stenosis and significant impingement on course of the nerve root at that site. Dictated by: William Norwood M.D. on 01/15/2024 at 11:06 Approved by: William Norwood M.D. on 01/15/2024 at 11:14
== END ==
PROVIDERS: Referring Provider Internal Medicine; Visit Provider Internal Medicine
DX: M50.122 Cervical disc disorder at C5-C6 level with radiculopathy (principal); M48.02 Spinal stenosis, cervical region
CPT/HCPCS: 72141